=== PATIENT | female | born 1985 | race Caucasian/White ===

== ENCOUNTER 2020-10-28 18:38 | Emergency (ER) | payer OTHER, SELFPAY ==
[2020-10-28 18:38] VITALS: BP 117/76; PULSE 84; RESP 16; TEMP 36.6; O2SAT 100
[2020-10-28] MEDS: MORPHINE SULFATE (*CRX) 4 MG/ML INJ IM (19:00)
[2020-10-28] MEDS: TETRACAINE HCL 0.5% OPHTH SOLN 4 ML BTL 1 DROP RIGHT EYE (19:28)
[2020-10-28] MEDS: ERYTHROMYCIN OPHTH OINTMENT 3.5 GM TUBE 1 APPLIC RIGHT EYE (19:30)
[2020-10-28] MEDS: FLUORESCEIN SOD 1 MG/STRIP RIGHT EYE (19:31)
--- NOTE | 2020-10-28 19:48 | ED.EYEPROB ---
HPI - Eye Problem General Chief complaint: Eye Problems Stated complaint: right eye pain Time Seen by Provider: 10/28/20 18:40 Source: patient and RN notes reviewed Mode of arrival: ambulatory Limitations: no limitations History of Present Illness HPI Narrative: Pt washed the right eye out x 45 min after the eye was splashed with an acidic solution. chief complaint: eye pain and eye redness Onset (ago): hour(s) (3) Onset description: sudden Duration: constant Location: right eye Eye Symptoms: burning, redness and pain Place: work Mechanism: chemical exposure Severity: mild Severity scale (1-10): 6 If Pain, Quality: burning and aching Associated symptoms: none Treatments Prior to Arrival: irrigated eye Related Data Allergies Allergy/AdvReac Type Severity Reaction Status Date / Time acetaminophen Allergy Unknown Verified 11/11/18 19:26 hydrocodone Allergy Unknown Verified 05/14/12 09:01 HYDROCODONE BIT Allergy Unknown Uncoded 11/11/18 19:26 Contrast Media AdvReac Mild IVP DYE Uncoded 11/11/18 19:26 Review of Systems Review of Systems: All systems reviewed & are unremarkable except as noted in HPI and below Constitutional: Constitutional: Reports as per HPI and Reports no additional constitutional complaints Eyes: Eyes: Reports as per HPI and Reports no additional eye complaints ENT: Reports system reviewed and no additional complaints, except as documented and Reports as per HPI Cardiovascular: Cardiovascular: Reports as per HPI and Reports no additional cardiovascular complaints Respiratory: Respiratory: Reports as per HPI and Reports no additional respiratory complaints Gastrointestinal: Gastrointestinal: Reports as per HPI and Reports no additional gastrointestinal complaints Genitourinary: Genitourinary: Reports no additional female genitourinary complaints and Reports as per HPI Musculoskeletal: Musculoskeletal: Reports no additional musculoskeletal complaints and Reports as per HPI Integumentary/Breasts: Skin/Breast: Reports system reviewed and no additional complaints, except as docu and Reports as per HPI Neurologic: Reports system reviewed and no additional complaints, except as documented and Reports as per HPI Psychiatric: Psychiatric: Reports no additional psychiatric complaints and Reports as per HPI Endocrine: Endocrine: Reports no additional endocrine complaints and Reports as per HPI Hematologic/Lymphatic: Hematologic/Lymphatic: Reports no additional hematologic/lymphatic complaints and Reports as per HPI Allergic/Immunologic: Allergic/Immunologic: Reports no additional allergic/immunologic complaints and Reports as per HPI [facility] Social History Social History Smoking status: Never smoker Alcohol intake: never Exam Const: General: no acute distress and alert Nutritional Appearance: well nourished Orientation/consciousness: patient oriented x3 Limitations: no limitations HENMT: Head: normal to inspection Ears: external ears normal and TM's normal bilaterally General nose exam: Normal external nose present and Normal nares present Mouth: Yes lip normal and Yes moist mucous membranes Teeth and gingiva: dentition normal Throat: posterior oropharynx normal Eyes: Conjunctivae: conjunctivae normal Pupils: Equal, round and reactive pupils present EOM: EOMs intact bilaterally Other: minimally abraded medial and lateral sclera right. cornea was not abraded. vision was normal for finger counting. Neck: Neck: normal visual inspection and no lymphadenopathy Chest: Chest palpation & inspection: normal inspection of the chest Resp: Effort & Inspection: normal respiratory effort Auscultation: clear to auscultation bilaterally Cardio: Rate: regular rate Rhythm: regular rhythm GI: Auscultation: normal bowel sounds : General: Yes bladder normal to palpation and Yes no CVA tenderness External Female Exam: normal external appear
[2020-10-28 20:00] VITALS: PULSE 80; RESP 16; O2SAT 100
--- NOTE | 2020-10-28 20:16 | PC.NURSE ---
1856 casandra at poison control contacted, case initiated. casandra instructed RN irrigate eye, test eye pH, and check for corneal abrasion. erp notified. eye irrigated. first pH 9.0. Eye irrigated again. 2nd pH 8.5. Eye irrigated again. 3rd pH 7.5 (second nurse verification Mandy Chan RN)
== END 2020-10-28 20:03 | disposition home or self-care (01) ==
PROVIDERS: Emergency Provider Emergency Medicine
DX: H10.211 Acute toxic conjunctivitis, right eye (principal)
CPT/HCPCS: 96372; 99283; A9270; J2270

== ENCOUNTER 2021-10-27 10:49 | Emergency (ER) | payer OTHER, SELFPAY ==
[2021-10-27 10:59] VITALS: BP 131/91; PULSE 79; RESP 18; TEMP 36.4; O2SAT 100
--- NOTE | 2021-10-27 11:18 | ED.FEMALEGU ---
HPI - Female Genitourinary General Chief complaint: Urogenital-Female Stated complaint: blood in urine Time Seen by Provider: 10/27/21 11:18 Source: patient Mode of arrival: ambulatory Limitations: no limitations History of Present Illness HPI Narrative: 36 yo F presents with c/o fatigue, generalized weakness, shakiness and feeling lightheaded at times. Symptoms for past 2 to 3 days. reports hx of hypoglycemia. on special hypoglycemia diet from doctor . Does not have glucometer at home to check blood. She suspects symptoms are from low blood sugar. Has been eating and drinking plenty. states she had big meal before arrival. BS here today 89. She states this is good for her. She also reports when standing for long period of time she starts to feel SOB because she is so tired . cannot do her normal activities. she also states she saw blood in urine several days ago but not recently. no other urinary symptoms. does not have periods due to early menopause. Pt states her PCP office is closed this week. All systems reviewed and negative except as noted above. Related Data Home Medications Medication Instructions Recorded Confirmed No Home Medications 10/27/21 10/27/21 Allergies Allergy/AdvReac Type Severity Reaction Status Date / Time acetaminophen Allergy Unknown Unknown Verified 10/27/21 13:16 hydrocodone Allergy Unknown Swelling Verified 10/27/21 13:16 HYDROCODONE BIT Allergy Unknown Swelling Uncoded 10/27/21 13:16 Contrast Media AdvReac Mild IVP DYE Uncoded 10/27/21 13:16 Review of Systems Review of Systems: CONSTITUTIONAL: Denies fever, chills, or sweats. Reports fatigue. EYES: Denies visual changes, redness, or discharge. ENT: Denies rhinorrhea, congestion, sore throat, or otalgia. CARDIOVASCULAR: Denies chest pain, palpitations, or edema. RESPIRATORY: Denies cough or dyspnea. GASTROINTESTINAL: Denies abdominal pain, nausea, vomiting, or diarrhea. GENITOURINARY: Denies dysuria or hematuria. SKIN: Denies rash or itching. MUSCULOSKELETAL: Denies back pain, joint pain, or myalgia. NEUROLOGIC: Denies headache, numbness. Reports generalized weakness, feeling shaky and intermittently lightheaded. PSYCHIATRIC: Denies anxiety or depression. All other systems reviewed are negative, except as documented in HPI. [facility] Social History Social History Smoking status: Never smoker Alcohol intake: never Comments At time of signature, agree with nursing past medical, surgical, social and family history. There is no relevant family history pertinent to the presenting complaint. Exam Narrative: GENERAL: This is a well-nourished, well-developed patient, in no apparent distress. HEAD: normocephalic, atraumatic. EYES: PERRL. Sclera clear/white. Vision is grossly intact. EARS: External ears normal NOSE: External nose normal NECK: Neck supple, non-tender without lymphadenopathy, masses or thyromegaly. CARDIOVASCULAR: Regular rate and rhythm without murmurs, gallops, or rubs. RESPIRATORY: Clear to auscultation. Breath sounds equal bilaterally. No wheezes, rales, or rhonchi. GASTROINTESTINAL: Abdomen soft, non-tender, nondistended. Bowel sounds are active. No hepato-splenomegaly, or palpable masses. No guarding. SKIN: warm, Dry, intact with no suspicious lesions or rash, good texture and turgor. NEURO: awake, alert, and oriented to person, place and time. There were no obvious focal neurologic abnormalities. EXTREMITIES: No joint tenderness, effusion, or edema noted. Course Course Level of Care: Express Care Visit Vital Signs Vital signs: Vital Signs Temperature 36.4 C L 10/27/21 10:59 Pulse Rate 79 10/27/21 10:59 Respiratory Rate 18 10/27/21 10:59 Blood Pressure 131/91 H 10/27/21 10:59 Pulse Oximetry 100 10/27/21 10:59 Oxygen Delivery Room Air 10/27/21 10:59 Temperature 36.4 C L 10/27/21 10:59 Pulse Rate 79 10/27/21 10:59 Respiratory Rate
[2021-10-27 11:29] LABS: Glucose Point of Care 89 mg/dl (65-105)
== END 2021-10-27 12:11 | disposition home or self-care (01) ==
PROVIDERS: Emergency Provider Nurse Practitioner Family
DX: Z71.1 Person with feared health complaint in whom no diagnosis is made (principal)
CPT/HCPCS: 81003; 82948; 87426; 99213; C9803; G0463

== ENCOUNTER 2021-10-27 13:02 | Emergency (ER) | payer OTHER, SELFPAY ==
--- NOTE | ~2021-10-27 | CT_ITS ---
EXAMINATION: CT diagnostic chest wo con DATE: 10/27/2021 14:11 INDICATION: Right scapular pain, shortness of breath TECHNIQUE: Computed tomography (CT) of the chest was performed without intravenous contrast. The dose -length product (DLP) was 135.96 mGy-cm. Automated exposure control and iterative reconstruction tech [employer] were employed. COMPARISON: None FINDINGS: There is mild scarring of the lung apices. There is a 3 mm nodule in the right lung apex. T he lungs are free of acute opacities. No pleural effusion or pneumothorax. No pathologically enlarged thoracic lymph nodes are identified. The heart size is normal. The visualized osseous structures are unremarkable. IMPRESSION: 1. No CT correlate for the patient's symptoms. 2. 3 mm nodule of the right lung apex, likely old granulomatous disease. If the patient has no risk f actors for malignancy, no further follow up is required. If there are risk factors for malignancy (i .e., history of smoking, asbestos or radiation exposure), consider followup CT in 12 months. Reviewed, dictated and finalized at location L. IMPRESSION: 1. No CT correlate for the patient's symptoms. 2. 3 mm nodule of the right lung apex, likely old granulomatous disease. If the patient has no risk factors for malignancy, no further follow up is required. If there are risk factors for malignancy (i.e., history of smoking, asbestos o r radiation exposure), consider followup CT in 12 months.
--- NOTE | ~2021-10-27 | CT_ITS ---
EXAMINATION: CT cervical spine wo con DATE: 10/27/2021 14:11 INDICATION: Posterior neck pain TECHNIQUE: Computed tomography (CT) of the cervical spine was performed without intravenous contrast. The dose-length product (DLP) was 131.74 mGy-cm. Automated exposure control and iterative reconstruc tion technique were employed. COMPARISON: None FINDINGS: There is no fracture, dislocation, or subluxation. The vertebral body heights, alignment, a nd intervertebral disc spaces are normal. The paravertebral soft tissues are unremarkable. The odonto id is intact. IMPRESSION: 1. Unremarkable cervical spine. Reviewed, dictated and finalized at location L.
--- NOTE | ~2021-10-27 | CT_ITS ---
EXAMINATION: CT brain wo con INDICATION: Dizziness COMPARISON: 01/16/2014 TECHNIQUE: Standard unenhanced head CT. The dose-length product (DLP) was 529.67 mGy-cm. The mA was a djusted according to patient size. Iterative reconstruction technique was employed. FINDINGS: There is no intracranial hemorrhage, acute infarction, or abnormal mass lesion. The ventric les are normal. There is no abnormal mass effect or midline shift. The abarca-white matter differentiat ion is normal. The basal cisterns are patent. The orbits are normal. The paranasal sinuses, mastoids and calvarium are normal. IMPRESSION: 1. No acute intracranial abnormality. Reviewed, dictated and finalized at location L.
[2021-10-27 13:12] VITALS: BP 124/77; PULSE 77; RESP 16; TEMP 36.4; O2SAT 100
--- NOTE | 2021-10-27 13:25 | ECG_ITS ---
Measurements Intervals [place] Rate: 75 P: 68 PA: 144 QRS: 94 QRSD: 114 T: 62 QT: 421 QTc: 473 Interpretive Statements SINUS RHYTHM RIGHT AXIS DEVIATION INCOMPLETE RIGHT BUNDLE BRANCH BLOCK DELAYED PRECORDIAL R/S TRANSITION BORDERLINE ECG Electronically Signed On 10-27-2021 13:57:22 CDT by Joce Varma D.O.
[2021-10-27 13:28] LABS: Glucose Point of Care 93 mg/dl (65-105)
[2021-10-27 13:53] LABS: Add Urine Microscopic? NO; Appearance Urine Clear (Clear); Basophils Absolute Auto 0.05 K/mm3 (0.00-0.10); Basophils Percent Auto 0.8 % (0.0-1.0); Bilirubin Urine Negative (Negative); Blood Urine Negative (Negative); Color Urine Light Yellow (Yellow); Eosinophils Percent Auto 3.1 % (1.0-6.0); Glucose Urine UA Negative (Negative); Hematocrit 43.3 % (35.0-49.0); Hemoglobin 14.5 g/dL (12.0-15.0); Immature Granulocyte Absolute 0.02 K/mm3 (0.00-0.00); Immature Granulocyte Percent A 0.3 % (0.0-0.0); Ketones Urine Negative (Negative); Leukocyte Esterase Ur Negative (Negative); Lymphocytes Absolute Auto 1.84 K/mm3 (1.10-4.50); Lymphocytes Percent Auto 28.1 % (18.0-42.0); Mean Corpuscular HGB Conc 33.5 g/dL (32.0-36.0); Mean Corpuscular Hemoglobin 29.4 pg (27.0-31.0); Mean Corpuscular Volume 87.8 fL (78.0-102.0); Mean Platelet Volume 10.1 fl (9.2-11.8); Monocytes Absolute Auto 0.49 K/mm3 (0.10-0.90); Monocytes Percent Auto 7.5 % (2.0-11.0); Neutrophils Percent Auto 60.2 % (50.0-70.0); Nitrate Urine Negative (Negative); Platelet Count Result 178 K/mm3 (150-420); Protein Urine Negative (Negative); Red Blood Count 4.93 M/mm3 (4.20-5.40); Red Cell Distribution Width 12.2 % (11.6-14.4); Specific Grav Ur <= 1.005 (1.010-1.020); Urobilinogen Urine 0.2 mg/dL (0.2-1.0); White Blood Count 6.6 K/mm3 (4.8-10.8); pH Urine 6.5 (5.0-8.0)
[2021-10-27 14:14] LABS: Lactic Acid Reflex 0.5 mmol/L (0.4-2.0)
[2021-10-27 14:19] LABS: Alanine Aminotransferase 24 U/L (14-59); Albumin Level 4.1 g/dL (3.4-5.0); Alkaline Phosphatase 87 U/L (46-116); Anion Gap 10 mmol/L (8-16); Aspartate Amino Transferase 16 U/L (15-37); Bilirubin,Total 0.3 mg/dL (0.00-1.00); Blood Urea Nitrogen 16 mg/dL (7-18); Calcium 9.3 mg/dL (8.5-10.1); Carbon Dioxide 28 mmol/L (21-32); Chloride 105 mmol/L (98-108); Estimated Glomerular Filt Rate > 60; Glucose 96 mg/dL (70-99); Osmolality Calculated 297 mOsm/kg (285-295); Potassium 3.7 mmol/L (3.5-5.1); SPREG INTERNAL CONTROL Positive; Serum Qual hCG Negative; Sodium 143 mmol/L (136-145); Total Protein 7.5 g/dL (6.4-8.2); Troponin I 5.9 ng/L (0.00-60.4)
[2021-10-27 14:20] LABS: Thyroid Stimulating Hormone 1.17 uIU/mL (0.36-3.74)
--- NOTE | 2021-10-27 14:49 | ED.DIZZY ---
HPI - Dizziness General Chief Complaint: Dizziness Stated Complaint: Blood in urine/Fatigue/Dizzines Time Seen by Provider: 10/27/21 13:06 Source: patient and RN notes reviewed Mode of arrival: ambulatory Limitations: no limitations History of Present Illness MD elicited complaint: dizziness and lightheadedness Onset (ago): day(s) Timing: gradual onset Severity: moderate Description: lightheadedness History of similar symptoms: Yes Exacerbating factors: nothing Relieving factors: nothing Associated symptoms: nausea and weakness Associated neuro symptoms: limb weakness Related Data Home Medications Medication Instructions Recorded Confirmed No Home Medications 10/27/21 10/27/21 Allergies Allergy/AdvReac Type Severity Reaction Status Date / Time acetaminophen Allergy Unknown Unknown Verified 10/27/21 13:16 hydrocodone Allergy Unknown Swelling Verified 10/27/21 13:16 HYDROCODONE BIT Allergy Unknown Swelling Uncoded 10/27/21 13:16 Contrast Media AdvReac Mild IVP DYE Uncoded 10/27/21 13:16 Review of Systems Review of Systems: All systems reviewed & are unremarkable except as noted in HPI and below Constitutional: Constitutional: Reports no additional constitutional complaints Eyes: Eyes: Reports no additional eye complaints ENT: Reports system reviewed and no additional complaints, except as documented Cardiovascular: Cardiovascular: Reports no additional cardiovascular complaints Respiratory: Respiratory: Reports no additional respiratory complaints Gastrointestinal: Gastrointestinal: Reports no additional gastrointestinal complaints Genitourinary: Genitourinary: Reports no additional female genitourinary complaints Musculoskeletal: Musculoskeletal: Reports no additional musculoskeletal complaints Integumentary/Breasts: Skin/Breast: Reports system reviewed and no additional complaints, except as docu Neurologic: Reports system reviewed and no additional complaints, except as documented, Reports dizziness and Reports weakness Psychiatric: Psychiatric: Reports no additional psychiatric complaints Endocrine: Endocrine: Reports no additional endocrine complaints Hematologic/Lymphatic: Hematologic/Lymphatic: Reports no additional hematologic/lymphatic complaints Allergic/Immunologic: Allergic/Immunologic: Reports no additional allergic/immunologic complaints PMFSH Past Medical History Medical History Dizziness Generalized weakness Social History Social History Smoking status: Never smoker Alcohol intake: never Exam Const: General: healthy appearing and no acute distress Nutritional Appearance: well nourished Orientation/consciousness: patient oriented x3 Limitations: no limitations HENMT: Head: normal to inspection Ears: external ears normal, TM's normal bilaterally and EAC's normal General nose exam: Normal external nose present and Normal nares present Face and sinus: normal facial exam and sinuses nontender Mouth: Yes Normal oral and palatal mucosa present and Yes moist mucous membranes Teeth and gingiva: dentition normal Throat: posterior oropharynx normal Eyes: Conjunctivae: conjunctivae normal Pupils: Equal, round and reactive pupils present EOM: EOMs intact bilaterally Neck: Neck: normal visual inspection, no lymphadenopathy and no meningeal signs Chest: Chest palpation & inspection: normal inspection of the chest Resp: Effort & Inspection: normal respiratory effort Auscultation: clear to auscultation bilaterally Cardio: Rate: regular rate Rhythm: regular rhythm GI: GI Palp: Yes Soft to palpation and No Tenderness to palpation present (GI) Auscultation: normal bowel sounds : General: Yes bladder normal to palpation and Yes no CVA tenderness Bimanual exam- vagina & uterus: bladder normal to palpation Back/Spine/Pelvis: Back: no CVA tenderness Skin: Genera
[2021-10-27] MEDS: SODIUM CHLORIDE 0.9% IV 1,000 ML 999 ML IV CONT (15:01)
[2021-10-27 16:03] VITALS: BP 114/73; PULSE 78; RESP 16; TEMP 36.8; O2SAT 100
== END 2021-10-27 16:24 | disposition home or self-care (01) ==
PROVIDERS: Emergency Provider Emergency Medicine
DX: M62.81 Muscle weakness (generalized) (principal)
CPT/HCPCS: 36415; 70450; 71250; 72125; 80053; 81003; 82948; 83605; 84443; 84484; 84703; 85025; 93005; 96360; 99284; J7030

== ENCOUNTER 2022-01-07 17:57 | Emergency (ER) | payer OTHER, SELFPAY ==
[2022-01-07 17:57] VITALS: BP 114/74; PULSE 66; RESP 20; TEMP 36.6; O2SAT 97
[2022-01-07] MEDS: SODIUM CHLORIDE 0.9% IV 1,000 ML 999 ML IV CONT ×2 (18:23→19:33)
[2022-01-07] MEDS: ONDANSETRON INJ 4 MG/2 ML VIAL IV PUSH ×2 (18:23→20:44)
[2022-01-07 18:48] LABS: Glucose Point of Care 83 mg/dl (65-105)
--- NOTE | 2022-01-07 19:11 | PC.NURSE ---
Report to TAYLOR Uribe. no questions or concerns at this time.
--- NOTE | 2022-01-07 19:34 | PC.NURSE ---
RN started to educated pt on medications that is ordered for pt. Pt states that she believes she is just dehydrated and does not want any more medications besides the NSS. Pt also states that she does not want the abdominal CT. ERP and technician notified.
[2022-01-07 19:51] LABS: Basophils Absolute Auto 0.02 K/mm3 (0.00-0.10); Basophils Percent Auto 0.3 % (0.0-1.0); Eosinophils Absolute Auto 0.03 K/mm3 (0.02-0.50); Eosinophils Percent Auto 0.5 % (1.0-6.0); Hematocrit 35.9 % (35.0-49.0); Hemoglobin 11.5 g/dL (12.0-15.0); Immature Granulocyte Absolute 0.02 K/mm3 (0.00-0.00); Immature Granulocyte Percent A 0.3 % (0.0-0.0); Lymphocytes Percent Auto 15.1 % (18.0-42.0); Mean Corpuscular Hemoglobin 28.8 pg (27.0-31.0); Mean Platelet Volume 10.4 fl (9.2-11.8); Monocytes Absolute Auto 0.42 K/mm3 (0.10-0.90); Monocytes Percent Auto 6.3 % (2.0-11.0); Neutrophils Absolute Auto 5.2 K/mm3 (1.7-7.2); Neutrophils Percent Auto 77.5 % (50.0-70.0); Platelet Count Result 128 K/mm3 (150-420); Red Blood Count 3.99 M/mm3 (4.20-5.40); Red Cell Distribution Width 12.3 % (11.6-14.4); White Blood Count 6.6 K/mm3 (4.8-10.8)
[2022-01-07 19:58] LABS: Appearance Urine Clear (Clear); Bilirubin Urine Negative (Negative); Blood Urine Negative (Negative); Glucose Urine UA Negative (Negative); Ketones Urine 3+ (Negative); Leukocyte Esterase Ur Negative (Negative); Nitrate Urine Negative (Negative); Protein Urine Negative (Negative); Specific Grav Ur >= 1.030 (1.010-1.020); Urobilinogen Urine 0.2 mg/dL (0.2-1.0)
[2022-01-07 20:04] LABS: Add Urine Microscopic? YES; Color Urine Light Yellow (Yellow); SPREG INTERNAL CONTROL Positive; Serum Qual hCG Negative; Squamous Epithelial Cell Urine Occasional /hpf (Few)
[2022-01-07 20:12] LABS: Alanine Aminotransferase 25 U/L (14-59); Albumin Level 3.3 g/dL (3.4-5.0); Alkaline Phosphatase 63 U/L (46-116); Anion Gap 9 mmol/L (8-16); Aspartate Amino Transferase 15 U/L (15-37); Bilirubin,Total 0.5 mg/dL (0.00-1.00); Blood Urea Nitrogen 9 mg/dL (7-18); Calcium 7.6 mg/dL (8.5-10.1); Carbon Dioxide 22 mmol/L (21-32); Chloride 113 mmol/L (98-108); Estimated CRCL calculation 131 ml/min; Estimated Glomerular Filt Rate > 60; Glucose 95 mg/dL (70-99); Lactic Acid Reflex 0.8 mmol/L (0.4-2.0); Lipase 128 U/L (73-393); Osmolality Calculated 296 mOsm/kg (285-295); Potassium 3.3 mmol/L (3.5-5.1); Sodium 144 mmol/L (136-145); Thyroid Stimulating Hormone 0.68 uIU/mL (0.36-3.74); Total Protein 5.8 g/dL (6.4-8.2)
--- NOTE | 2022-01-07 20:31 | PC.NURSE ---
Pt states she feels nauseous again and is asking for zofran. ERP informed. ERP orders IV 4mg Zofran.
--- NOTE | 2022-01-07 20:42 | ED.NAVMDI ---
HPI - Nausea/Vomiting/Diarrhea General Chief complaint: Nausea/Vomiting/Diarrhea Stated complaint: dehydration,vomiting, diarrhea Time Seen by Provider: 01/07/22 17:59 Source: patient and RN notes reviewed Mode of arrival: ambulatory Limitations: no limitations History of Present Illness MD elicited complaint: nausea, vomiting, diarrhea and abdominal pain Onset (ago): hour(s) (16) Description of vomiting: food contents and watery Description of diarrhea: semi-solid Associated nausea: Yes Associated abdominal pain: Yes Location of pain: epigastric Radiation: periumbilical Pain consistency: constant Severity: mild Pain scale (0-10): 3 Quality: cramping and aching Exacerbating factors: none Relieving factors: none Associated symptoms: loss of appetite, malaise and nausea/vomiting Related Data Allergies Allergy/AdvReac Type Severity Reaction Status Date / Time hydrocodone Allergy Unknown Swelling Verified 10/27/21 13:16 HYDROCODONE BIT Allergy Unknown Swelling Uncoded 10/27/21 13:16 Contrast Media AdvReac Mild IVP DYE Uncoded 10/27/21 13:16 Review of Systems Review of Systems: All systems reviewed & are unremarkable except as noted in HPI and below Constitutional: Constitutional: Reports no additional constitutional complaints Eyes: Eyes: Reports no additional eye complaints ENT: Reports system reviewed and no additional complaints, except as documented Cardiovascular: Cardiovascular: Reports no additional cardiovascular complaints Respiratory: Respiratory: Reports no additional respiratory complaints Gastrointestinal: Gastrointestinal: Reports abdominal pain, Reports diarrhea, Reports nausea and Reports vomiting Genitourinary: Genitourinary: Reports no additional female genitourinary complaints Musculoskeletal: Musculoskeletal: Reports no additional musculoskeletal complaints Integumentary/Breasts: Skin/Breast: Reports system reviewed and no additional complaints, except as docu Neurologic: Reports system reviewed and no additional complaints, except as documented Psychiatric: Psychiatric: Reports no additional psychiatric complaints Endocrine: Endocrine: Reports no additional endocrine complaints Hematologic/Lymphatic: Hematologic/Lymphatic: Reports no additional hematologic/lymphatic complaints Allergic/Immunologic: Allergic/Immunologic: Reports no additional allergic/immunologic complaints [facility] Past Medical History Medical History (Updated 01/07/22 @ 20:55 by Augie Calero MD) Dizziness Generalized weakness Vomiting and diarrhea Social History Social History Smoking status: Never smoker Alcohol intake: never Exam Const: General: no acute distress and well nourished Nutritional Appearance: well nourished Orientation/consciousness: patient oriented x3 Limitations: no limitations HENMT: Head: normal to inspection Ears: external ears normal, TM's normal bilaterally and EAC's normal Face/Nose/Sinus: Normal external nose present, Normal nares present, normal facial exam and sinuses nontender Face and sinus: normal facial exam and sinuses nontender Mouth: Yes Normal oral and palatal mucosa present and Yes moist mucous membranes Teeth and gingiva: dentition normal Throat: posterior oropharynx normal Eyes: Conjunctivae: conjunctivae normal Pupils: Equal, round and reactive pupils present EOM: EOMs intact bilaterally Neck: Neck: normal visual inspection, no lymphadenopathy and no meningeal signs Chest: Chest palpation & inspection: normal inspection of the chest Resp: Effort & Inspection: normal respiratory effort Auscultation: clear to auscultation bilaterally Cardio: Rate: regular rate Rhythm: regular rhythm GI: GI Palp: Yes Soft to palpation and Yes Tenderness to palpation present (GI) (minimal epigastric tenderness.) Auscultation: normal bowel sounds : General: Yes bladder normal to palpation and Yes no CVA tenderness
[2022-01-07] MEDS: POTASSIUM CHLORIDE 20 MEQ TABLET 40 MEQ PO (20:48)
[2022-01-07 20:57] VITALS: BP 100/63; PULSE 64; RESP 16; TEMP 37.1; O2SAT 97
== END 2022-01-07 21:04 | disposition home or self-care (01) ==
PROVIDERS: Emergency Provider Emergency Medicine; PCP Nurse Practitioner
DX: K52.9 Noninfective gastroenteritis and colitis, unspecified (principal); E86.0 Dehydration
CPT/HCPCS: 36415; 80053; 81001; 82948; 83605; 83690; 84443; 84703; 85025; 96361; 96374; 96376; 99284; A9270; J2405; J7030

== ENCOUNTER 2022-01-20 15:36 | Emergency (ER) | payer OTHER, SELFPAY ==
[2022-01-20 15:45] VITALS: BP 112/73; PULSE 74; RESP 18; TEMP 36.1; O2SAT 100
--- NOTE | 2022-01-20 15:59 | ED.GENADULT ---
HPI - General Adult General Chief complaint: Nausea/Vomiting/Diarrhea Stated complaint: dehydration Time Seen by Provider: 01/20/22 15:50 History of Present Illness HPI narrative: The patient is a 36-year-old woman who was seen here 01/07/2022 for nausea vomiting and diarrhea. She was treated and sent home on Zofran and potassium supplementation since the potassium level was low. She has also seen her primary care provider since that time and has received 3 boluses of intravenous hydration with vitamins, most recently 9 days ago. Things had improved until yesterday evening when the patient had loose to watery diarrheal stools, 6 episodes last night, another 7 episodes today. She feels weak and tired and dehydrated along with dizziness and nausea but no vomiting. She has been taking oral hydration but feels that she is still dehydrated. She denies any fevers or chills. Mild abdominal discomfort. No urinary symptoms. Other complaints. Related Data Allergies Allergy/AdvReac Type Severity Reaction Status Date / Time hydrocodone Allergy Unknown Swelling Verified 10/27/21 13:16 HYDROCODONE BIT Allergy Unknown Swelling Uncoded 10/27/21 13:16 Contrast Media AdvReac Mild IVP DYE Uncoded 10/27/21 13:16 Review of Systems Review of Systems: All systems reviewed & are unremarkable except as noted in HPI and below Constitutional: Constitutional: Reports no additional constitutional complaints, Denies anorexia, Denies body ache(s), Denies chills, Denies excessive sweating, Reports fatigue, Denies fever(s), Denies frequent falls, Denies headache(s) and Reports malaise Eyes: Eyes: Reports no additional eye complaints, Denies blurry vision, Denies change in vision, Denies irritation, Denies itchy eyes and Denies photophobia ENT: Reports system reviewed and no additional complaints, except as documented, Reports Normal hearing present, Denies change in voice, Denies dysphagia, Denies vertigo, Reports dizziness, Denies ear discharge, Denies headache(s), Denies hearing loss, Denies hoarseness, Denies nasal congestion, Denies neck pain, Denies sinus pressure, Denies sore throat and Denies throat swelling Cardiovascular: Cardiovascular: Reports no additional cardiovascular complaints, Denies chest pain, Denies syncope, Denies rapid heart rate, Denies irregular heart rhythm, Denies leg edema, Denies dyspnea and Denies slow heart rate Respiratory: Respiratory: Reports no additional respiratory complaints, Denies cough, Denies dyspnea, Denies stridor and Denies wheezing Gastrointestinal: Gastrointestinal: Reports no additional gastrointestinal complaints, Reports abdominal pain ( Mild, diffuse), Denies melena, Denies hematochezia, Denies dysphagia, Reports diarrhea, Reports nausea and Denies vomiting Genitourinary: Genitourinary: Denies hematuria, Denies urinary frequency, Denies dysuria, Denies flank pain and Denies urinary urgency Musculoskeletal: Musculoskeletal: Reports no additional musculoskeletal complaints, Denies abnormal gait, Denies back pain, Denies myalgias, Denies arthralgias, Denies joint swelling, Denies limited range of motion, Denies muscle cramps, Denies muscle weakness, Denies neck pain and Denies numbness Integumentary/Breasts: Skin/Breast: Reports system reviewed and no additional complaints, except as docu, Denies breast pain, Denies change in pigmentation, Denies pruritus, Denies erythema and Denies wounds Neurologic: Reports system reviewed and no additional complaints, except as documented, Reports Normal hearing present, Denies Abnormal speech present, Denies abnormal gait, Denies confusion, Denies vertigo, Denies dizziness, Denies syncope, Denies frequent falls, Denies headache(s), Denies focal weakness, Denies numbness and Denies paresthesias Psychiatric: Psychiatric: Reports no additional psychiatric complaints and Denies confusion Endocrine: Endocrine: Reports no additional endocrine complaints, Denies cold intolerance, Denies exce
[2022-01-20 16:24] VITALS: BP 107/78; PULSE 73
[2022-01-20 16:25] VITALS: BP 109/89; PULSE 92
[2022-01-20 16:26] VITALS: BP 117/82; PULSE 94
[2022-01-20 16:43] LABS: Appearance Urine Clear (Clear); Bilirubin Urine Negative (Negative); Blood Urine Negative (Negative); Glucose Urine UA Negative (Negative); Ketones Urine Negative (Negative); Leukocyte Esterase Ur Negative LEU/UL (Negative); Nitrate Urine Negative (Negative); Protein Urine Negative (Negative); Specific Grav Ur <= 1.005 (1.010-1.020); Urobilinogen Urine 0.2 mg/dL (0.2-1.0); pH Urine 6.5 (5.0-8.0)
[2022-01-20 16:50] LABS: Add Urine Microscopic? NO; Color Urine Light Yellow (Yellow); Pregnancy On Board Control Positive; Urine Pregnancy Test Negative
[2022-01-20 16:56] LABS: Alanine Aminotransferase 23 U/L (14-59); Albumin Level 4.3 g/dL (3.4-5.0); Alkaline Phosphatase 91 U/L (46-116); Anion Gap 10 mmol/L (8-16); Aspartate Amino Transferase 21 U/L (15-37); Bilirubin,Total 0.5 mg/dL (0.00-1.00); Blood Urea Nitrogen 13 mg/dL (7-18); Calcium 9.4 mg/dL (8.5-10.1); Carbon Dioxide 27 mmol/L (21-32); Chloride 104 mmol/L (98-108); Estimated CRCL calculation 87 ml/min; Estimated Glomerular Filt Rate > 60; Glucose 103 mg/dL (70-99); Lipase 244 U/L (73-393); Osmolality Calculated 292 mOsm/kg (285-295); Potassium 3.6 mmol/L (3.5-5.1); Sodium 141 mmol/L (136-145); Total Protein 8.2 g/dL (6.4-8.2)
[2022-01-20] MEDS: SODIUM CHLORIDE 0.9% IV 2,000 ML 999 ML IV CONT (16:59)
[2022-01-20 17:15] LABS: Magnesium 2.1 mg/dL (1.8-2.4)
[2022-01-20 17:16] LABS: Amylase 73 U/L (25-115); Basophils Absolute Auto 0.06 K/mm3 (0.00-0.10); Basophils Percent Auto 0.7 % (0.0-1.0); Eosinophils Absolute Auto 0.28 K/mm3 (0.02-0.50); Eosinophils Percent Auto 3.3 % (1.0-6.0); Hematocrit 42.5 % (35.0-49.0); Hemoglobin 14.2 g/dL (12.0-15.0); Immature Granulocyte Absolute 0.03 K/mm3 (0.00-0.00); Immature Granulocyte Percent A 0.4 % (0.0-0.0); Lymphocytes Absolute Auto 2.88 K/mm3 (1.10-4.50); Lymphocytes Percent Auto 34.4 % (18.0-42.0); Mean Corpuscular HGB Conc 33.4 g/dL (32.0-36.0); Mean Corpuscular Hemoglobin 29.1 pg (27.0-31.0); Mean Corpuscular Volume 87.1 fL (78.0-102.0); Monocytes Absolute Auto 0.82 K/mm3 (0.10-0.90); Monocytes Percent Auto 9.8 % (2.0-11.0); Neutrophils Absolute Auto 4.3 K/mm3 (1.7-7.2); Neutrophils Percent Auto 51.4 % (50.0-70.0); Platelet Count Result 201 K/mm3 (150-420); Red Blood Count 4.88 M/mm3 (4.20-5.40); Red Cell Distribution Width 11.8 % (11.6-14.4); White Blood Count 8.4 K/mm3 (4.8-10.8)
--- NOTE | 2022-01-20 17:17 | PC.NURSE ---
pt resting per cot. pt refused zofran, states iv fluids with help nausea.
--- NOTE | 2022-01-20 17:57 | PC.NURSE ---
pt resting per cot, at bedside. iv fluids infusing without difficulty. nausea better per pt.
[2022-01-20] MEDS: POTASSIUM BICARBONATE 25 MEQ TABEF 50 MEQ PO (18:17)
[2022-01-20 18:24] VITALS: BP 114/77; PULSE 65; RESP 18; TEMP 36.9; O2SAT 97
== END 2022-01-20 18:33 | disposition home or self-care (01) ==
PROVIDERS: Emergency Provider Emergency Medicine; PCP Dentist
DX: R19.7 Diarrhea, unspecified (principal); R53.1 Weakness; R42 Dizziness and giddiness
CPT/HCPCS: 36415; 80053; 81003; 81025; 82150; 83690; 83735; 85025; 96360; 99283; A9270; J7030

== ENCOUNTER 2022-03-07 16:36 | Emergency (ER) | payer OTHER, SELFPAY ==
--- NOTE | 2022-03-07 17:19 | PC.NURSE ---
Patient's up to triage to notify this RN that the patient is feeling much better and will be leaving without seeing a provider. Patient encouraged to return to the ED with any worsening sx. Patient ambulatory when leaving ER with steady gait. Respiration appears regular and nonlabored.
== END 2022-03-07 17:19 | disposition left against medical advice (07) ==
PROVIDERS: Emergency Provider Nurse Practitioner; PCP Nurse Practitioner
DX: Z53.21 Procedure and treatment not carried out due to patient leaving prior to being seen by health care provider (principal)
CPT/HCPCS: 99199

== ENCOUNTER 2023-01-26 20:16 | Emergency (ER) | payer OTHER, SELFPAY ==
[2023-01-26 20:20] VITALS: BP 112/77; PULSE 76; RESP 20; TEMP 36.4; O2SAT 100
--- NOTE | 2023-01-26 21:39 | PC.NURSE ---
2121 - Pt called for room, no answer 2138 - Pt called for room, no answer
== END 2023-01-26 21:43 | disposition left against medical advice (07) ==
LOC: ANHED 21:42
PROVIDERS: PCP Nurse Practitioner
DX: R06.02 Shortness of breath (principal)
CPT/HCPCS: 99199

== ENCOUNTER 2023-04-28 11:32 | Emergency (ER) | payer OTHER, SELFPAY ==
[2023-04-28] VITALS (14 sets, daily range): BP systolic 101–112; BP diastolic 57–89; PULSE 64–72; RESP 16–20; TEMP 36.4; O2SAT 100
--- NOTE | ~2023-04-28 | CT_ITS ---
EXAMINATION: CT abdomen pelvis wo con DATE: 04/28/2023 13:14 INDICATION: Right lower quadrant pain TECHNIQUE: Computed tomography (CT) of the abdomen and pelvis was performed without intravenous contr ast. The dose-length product was 239.88 mGy-cm. Automated exposure control and iterative reconstructi on technique were employed. COMPARISON: CT dated 11/11/2018. FINDINGS: Lung bases are unremarkable. Heart size normal. There is mild right hydronephrosis. No obst ructing stone or mass is seen. Normal appendix. Nonobstructive bowel pattern. The liver, spleen, panc reas, adrenal glands and left kidney are unremarkable. No significant vascular abnormality. Bladder i s severely distended. No acute osseous abnormality. IMPRESSION: 1. Mild right hydronephrosis. No obstructing stone or mass is seen. Reviewed, dictated and finalized at location A. T SPA DESK
--- NOTE | ~2023-04-28 | US_ITS ---
EXAMINATION: US pelvic complete w TV DATE: 04/28/2023 18:16 INDICATION: eval for torsion, patient reportedly postmenopausal on hormone replacement. TECHNIQUE: Multiple transabdominal and endovaginal sonographic images of the pelvis were obtained. COMPARISON: 04/28/2023. FINDINGS: Uterus: Retroverted uterus measuring 6.4 x 4.6 x 5.8 cm. Endometrial complex measures 10 mm, with foc i of endometrial fluid. Right Ovary: 3.2 x 1.1 x 1.9 cm. Vascular flow is present. No adnexal mass. Left Ovary: 3.1 x 2.4 x 3.1 cm. Vascular flow is present. 2.1 cm cyst with a fluid fluid level versus artifact, likely representing a simple cyst with artifact or a hemorrhagic cyst with dependent clot. There is no free fluid in the pelvis. IMPRESSION: 10 mm endometrial thickness with endometrial fluid, recommend gynecology referral and consideration f or the medial sampling. 2.1 cm presumed hemorrhagic cyst in the left ovary, recommend pelvic ultrasound follow-up in 6-12 wee ri. Reviewed, dictated and finalized at location K. [employer] IMPRESSION: 10 mm endometrial thickness with endometrial fluid, recommend gynecology referr al and consideration for the medial sampling. 2.1 cm presumed hemorrhagic cyst in the left ovary, recommend pelvic ultrasound follow-up in 6-12 weeks.
[2023-04-28 12:01] LABS: Basophils Absolute Auto 0.1 K/mm3 (0.0-0.1); Eosinophils Absolute Auto 0.1 K/mm3 (0-0.3); Eosinophils Percent Auto 2.1 % (0-4.4); Hematocrit 41.4 % (37.0-47.0); Hemoglobin 13.8 g/dL (12.0-15.0); Immature Granulocyte Absolute 0.06 K/mm3 (0.00-0.031); Lymphocytes Absolute Auto 2.01 K/mm3 (0.9-3.2); Mean Corpuscular HGB Conc 33.3 g/dl (32-36); Mean Corpuscular Hemoglobin 28.9 pg (26-34); Mean Corpuscular Volume 86.8 fl (80-100); Mean Platelet Volume 9.7 fl (7.4-10.4); Monocytes Absolute Auto 0.6 K/mm3 (0.1-0.6); Monocytes Percent Auto 9.1 % (2.6-8.5); Neutrophils Absolute Auto 3.5 K/mm3 (1.3-6.7); Neutrophils Percent Auto 54.8 % (45.5-73.1); Platelet Count Result 182 k/mm3 (150-375); Red Blood Count 4.77 M/mm3 (4.2-5.4); Red Cell Distribution Width 12.7 % (11.5-14.5); White Blood Count 6.3 K/mm3 (4.5-10.0)
[2023-04-28 12:07] LABS: Appearance Urine Clear (Clear); Bilirubin Urine Negative (Negative); Blood Urine Negative (Negative); Color Urine Yellow (Yellow); Glucose Urine UA Negative (Negative); Ketones Urine Negative (Negative); Leukocyte Esterase Ur Negative LEU/UL (Negative); Nitrate Urine Negative (Negative); Protein Urine Negative (Negative); Specific Grav Ur 1.004 (1.001-1.035); Urobilinogen Urine 0.2 mg/dL (<2.0)
[2023-04-28 12:11] LABS: Alanine Aminotransferase 19 U/L (6-35); Albumin Level 4.3 g/dL (3.5-5.1); Alkaline Phosphatase 72 U/L (38-126); Anion Gap 8 mmol/L (8-16); Aspartate Amino Transferase 22 U/L (14-36); Bilirubin,Total 0.6 mg/dL (0.2-1.3); Blood Urea Nitrogen 13 mg/dL (7-17); Calcium 9.3 mg/dL (8.4-10.2); Carbon Dioxide 24 mmol/L (22-30); Chloride 106 mmol/L (98-107); Estimated CRCL calculation 109 ml/min; Estimated Glomerular Filt Rate > 60; Glucose 98 mg/dL (65-110); Lipase 196 U/L (23-300); Sodium 138 mmol/L (137-145)
[2023-04-28 12:15] LABS: Add Urine Microscopic? NO
--- NOTE | 2023-04-28 17:03 | ED.ABDPAIN ---
HPI - Abdominal Pain General Chief Complaint: Abdominal Pain <Fredy Carrion MD - Last Filed: 04/29/23 15:59> Stated Complaint: abd pain <Fredy Carrion MD - Last Filed: 04/29/23 15:59> Time Seen by Provider: 04/28/23 16:44 <Fredy Carrion MD - Last Filed: 04/29/23 15:59> History of Present Illness HPI narrative: 37-year-old female presenting to the emergency department for evaluation of right lower quadrant pain. Patient states pain has been ongoing for the last week but has been worsening. Patient denies any prior history of ovarian cyst denies any prior history of kidney stones. Patient denies any prior history of abdominal surgeries. <Fredy Carrion MD - Last Filed: 04/29/23 15:59> Related Data Allergies/Adverse Reactions: Allergies Allergy/AdvReac Type Severity Reaction Status Date / Time hydrocodone Allergy Unknown Swelling Verified 04/28/23 11:34 HYDROCODONE BIT Allergy Unknown Swelling Uncoded 01/26/23 20:27 Contrast Media AdvReac Mild IVP DYE Uncoded 01/26/23 20:27 <Fredy Carrion MD - Last Filed: 04/29/23 15:59> Review of Systems Review of Systems: All systems reviewed & are unremarkable except as noted in HPI and below <Fredy Carrion MD - Last Filed: 04/29/23 15:59> PMFSH Past Medical History Medical History: Medical History (Updated 04/29/23 @ 00:00 by [facility]) Dizziness Generalized weakness Vomiting and diarrhea <Fredy Carrion MD - Last Filed: 04/29/23 15:59> Social History Social History: Social History Smoking status: Never smoker Alcohol intake: never <Fredy Carrion MD - Last Filed: 04/29/23 15:59> Exam Narrative: APPEARANCE: Well appearing, no pain, no distress, well-nourished. HEAD: normocephalic, atraumatic. EYES: PERRLA/EOMI, conjunctivae clear. NOSE: Normal no drainage EARS:TMS clear with good light reflex. THROAT: Pharynx clear, no exudate. NECK: Supple. No adenopathy, no masses. RESPIRATORY: Airway patent, respirations nonlabored. Clear to auscultation bilaterally, no rales, rhonchi, wheezing. CARDIOVASCULAR: Regular rate and rhythm without murmurs rubs or gallops. ABDOMINAL: Right lower quadrant tenderness to palpation MUSCULOSKELETAL: Moves all extremities. Strength/ROM intact, No edema, No calf tenderness. NEURO: Alert. Cranial nerves II through XII intact. Grossly intact SKIN: Warm, dry. Normal Color <Fredy Carrion MD - Last Filed: 04/29/23 15:59> Course Course Emergency Course: Received sign-out on this patient pending pelvic ultrasound. Ultrasound reveals 10 mm endometrial thickness with a small amount of endometrial fluid. There is also an ovarian cyst on the left, possibly simple cyst versus resolving hemorrhagic cyst. On re-evaluation, patient continues to have lower abdominal pain. She declines any pain medications. Discussed the workup and strongly advised very close gynecologic follow-up. States that she has not seen gynecology in about 9 years. Will provide the phone number for our supervisor [employer], advised that she call tomorrow. Also recommended close follow-up with her PCP. Appropriate return precautions given. Patient is agreeable with this plan. Discharged in stable condition. <Marjan Hassan MD - Last Filed: 04/28/23 19:43> Vital Signs Vital signs: Vital Signs Temperature 97.6 F 04/28/23 11:46 Pulse Rate 72 04/28/23 11:46 Respiratory Rate 20 04/28/23 11:46 Blood Pressure 103/57 L 04/28/23 11:46 Pulse Oximetry 100 04/28/23 11:46 Temperature 97.6 F 04/28/23 11:46 Pulse Rate 64 04/28/23 19:32 Respiratory Rate 16 04/28/23 19:32 Blood Pressure 112/89 04/28/23 19:32 Pulse Oximetry 100 04/28/23 19:45 <Fredy Carrion MD - Last Filed: 04/29/23 15:59> Vital Signs Temperature 97.6 F 04/28/23 11:46 Pulse Rate 72 04/28/23 11:46 Respirator
== END 2023-04-28 20:05 | disposition home or self-care (01) ==
PROVIDERS: Emergency Provider Emergency Medicine; PCP Nurse Practitioner
DX: R10.31 Right lower quadrant pain (principal); R93.89 Abnormal findings on diagnostic imaging of other specified body structures; N83.202 Unspecified ovarian cyst, left side; N13.30 Unspecified hydronephrosis
CPT/HCPCS: 36415; 74176; 76830; 76856; 80053; 81003; 81025; 83690; 85025; 99284

== ENCOUNTER 2024-05-31 13:18 | Emergency (ER) | payer OTHER, SELFPAY ==
[2024-05-31 13:23] VITALS: BP 104/59; PULSE 95; RESP 20; TEMP 37.3; O2SAT 100
--- NOTE | 2024-05-31 13:40 | ED.EAR ---
HPI - Ear Problem General Chief complaint: Upper Respiratory Infection Stated complaint: Ear Pain Time Seen by Provider: 05/31/24 13:42 Source: patient and RN notes reviewed Mode of arrival: ambulatory Limitations: no limitations History of Present Illness HPI Narrative: 38-year-old female presents with concern for influenzalike symptoms since . She reports fatigue, runny nose, stuffy nose, sore throat. Reports she recently started having severe ear pain. She reports she is has decreased appetite. She has been taking Motrin. Complaint: ear pain Related Data Allergies Allergy/AdvReac Type Severity Reaction Status Date / Time hydrocodone Allergy Unknown Swelling Verified 04/28/23 11:34 Iodinated Contrast Media Allergy Unknown Unknown Verified 05/31/24 13:53 Review of Systems Review of Systems: CONSTITUTIONAL: Reports malaise, chills, sweats, fever. EYES: Denies visual changes, redness, or discharge. ENT: Reports rhinorrhea, congestion, bilateral ear pain CARDIOVASCULAR: Denies chest pain, palpitations, or edema. RESPIRATORY: Reports cough. Denies dyspnea. GASTROINTESTINAL: Denies abdominal pain, nausea, vomiting, diarrhea SKIN: Denies rash or itching. MUSCULOSKELETAL: Reports myalgia. NEUROLOGIC: Reports headache. All systems reviewed & are unremarkable except as noted in HPI and below PMFSH Past Medical History Medical History (Updated 05/31/24 @ 13:47 by Gayatri Cantu NP) Vomiting and diarrhea Generalized weakness Dizziness Social History Social History Smoking status: Never smoker Alcohol intake: never Comments At time of signature, agree with nursing past medical, surgical, social and family history. There is no relevant family history pertinent to the presenting complaint Exam Narrative: GENERAL: Nontoxic-appearing, well-nourished, and in no acute distress. HEAD: Normocephalic EYES: PERRLA, conjunctivae clear ENT: Nares clear. Mucous membranes moist. TM erythematous and bulging on the right, ruptured with serosanguineous drainage on the left; no tragal tenderness. Oropharynx not erythematous without lesions. Tonsils not enlarged and without exudate, no drooling, no hoarseness, no trismus, uvula midline. NECK: Supple. No lymphadenopathy CHEST: Clear to auscultation, breath sounds equal. No wheezing, rhonchi, rales, or stridor. No respiratory distress, speaks in full sentences. HEART: Regular rate and rhythm. No murmur heard. SKIN: Warm, dry, no rash. NEURO: Alert and oriented x3. PSYCH: Normal mood and affect Course Course Emergency Course: Patient is aware of diagnosis, understands and agrees to treatment plan. Anticipatory guidance given. Patient agrees to follow-up as directed and is aware of reasons to seek care at the emergency department. Portions of this record may have been created with voice recognition software Level of Care: [facility] Visit Vital Signs Vital signs: Vital Signs Temperature 99.1 F 05/31/24 13:23 Pulse Rate 95 05/31/24 13:23 Respiratory Rate 20 05/31/24 13:23 Blood Pressure 104/59 L 05/31/24 13:23 Pulse Oximetry 100 05/31/24 13:23 Oxygen Delivery Room Air 05/31/24 13:23 Temperature 99.1 F 05/31/24 13:23 Pulse Rate 95 05/31/24 13:23 Respiratory Rate 20 05/31/24 13:23 Blood Pressure 104/59 L 05/31/24 13:23 Pulse Oximetry 100 05/31/24 13:23 Oxygen Delivery Room Air 05/31/24 13:23 Reviewed. Medical Decision Making MDM Narrative Medical decision making narrative: I evaluated this in the [facility]. History is obtained from patient who is an independent historian and physical exam was performed.? Available medical records were reviewed. ? Exam findings and relevant testing show no acute concerns or changes; patient is non-toxic appearing and is in no distress. Differential diagnosis considered: [place] virus, strep pharyngitis, allergic rhinitis, upper respiratory tract infection, sinusitis, rhinosinusitis, nasopharyngitis. viral pharyngitis, otitis media, otitis externa, otitis effusion, cerumen impaction, foreign body. Exam findings show no acute concerns or changes; patient is non-toxic appearing and is in no distress. Patient is appropriate for outpatient treatment and follow-up. ? Differential diagnosis and treatment plan were discussed with the patient. Patient agrees with discussion and after shared medical decision making agrees with plan of care. All questions were answered to the patient's satisfaction. Patient is appropriate for outpatient treatment and follow-up. Vital Signs Vital Signs: Vital Signs Temperature 99.1 F 05/31/24 13:23 Pulse Rate 95 05/31/24 13:23 Respiratory Rate 20 05/31/24 13:23 Blood Pressure 104/59 L 05/31/24 13:23 Pulse Oximetry 100 05/31/24 13:23 Oxygen Delivery Room Air 05/31/24 13:23 Temperature 99.1 F 05/31/24 13:23 Pulse Rate 95 05/31/24 13:23 Respiratory Rate 20 05/31/24 13:23 Blood Pressure 104/59 L 05/31/24 13:23 Pulse Oximetry 100 05/31/24 13:23 Oxygen Delivery Room Air 05/31/24 13:23 Critical Care Time Critical Care Time Critical Care Time: No Discharge Plan Discharge Clinical Impression: Influenza A Otitis media Qualifiers: Otitis media type: suppurative Chronicity: acute Laterality: bilateral Recurrence: non-recurrent Spontaneous tympanic membrane rupture: without spontaneous rupture Qualified Code(s): H66.003 - Acute suppurative otitis media without spontaneous rupture of ear drum, bilateral Patient Disposition: Home, Self-Care Condition: Stable Instructions: Antibiotic Form, Influenza (ED), Ear Infection (GEN) Additional Instructions: Your influenza a test is positive. The antibiotics to help your ear infection will not help symptoms caused by influenza. You need to treat the symptoms with [id number] medications. Take antibiotic as directed for ear infection. Can combine Tylenol and ibuprofen together to enhance maximum pain relieving effects for the next 1-3 days as needed. Take nasal decongestants as directed. -Take strict precautions to prevent the spread of your virus. Be diligent about covering your cough (even when you are alone) and washing your hands frequently. -You may contagious until you have been symptom and/or fever free for 24 hours without fever reducing medicine -Alternate Ibuprofen and Tylenol for pain and fever relief (per package directions) -Drink plenty of fluid - drink fluid with electrolytes such as Gatorade or other oral re-hydration solution. Avoid caffeine, which can make dehydration worse. -Get plenty of rest to help your body heal. -Use a cool mist humidifier for chest and nasal congestion. -Eat RAW honey or use cough drops to ease throat discomfort -Do not smoke or expose children to secondhand smoke -Wash your hands frequently. -Please follow-up with your primary care doctor in the next 1-2 days if your symptoms do not improve. -If you have any worsening of symptoms or any other concerns please go to the ED immediately. -Please take medications as prescribed and continue taking your home medications as usual. Patient Language: Citizen Of [place] Prescriptions: New pseudoephedrine HCl [12 Hour Decongestant] 120 mg tablet extended release 120 mg PO Q12H PRN (Reason: nasal congestion) Qty: 20 0RF ofloxacin 0.3 % drops 5 drp LEFT EAR DAILY 7 Days Qty: 10 0RF amoxicillin-pot clavulanate 875-125 mg tablet 1 tablet PO Q12H 10 Days Qty: 20 0RF Follow-up/Referrals: Raul,Sailaja Lee MD [Primary Care Provider] - Stand Alone Forms: Work/School Release IP Time of Disposition: 13:52
[2024-05-31 14:04] LABS: EDINFLUASCREEN Positive (Negative); EDINFLUBSCREEN Negative (Negative)
== END 2024-05-31 13:55 | disposition home or self-care (01) ==
PROVIDERS: Emergency Provider Nurse Practitioner; PCP Pediatrics Pediatric Emergency Medicine
DX: J10.1 Influenza due to other identified influenza virus with other respiratory manifestations (principal); H66.003 Acute suppurative otitis media without spontaneous rupture of ear drum, bilateral
CPT/HCPCS: 87804; 99213; G0463

== ENCOUNTER 2025-01-28 19:49 | Emergency (ER) | payer OTHER, SELFPAY ==
--- OUTSIDE RECORDS SUMMARY | 2017-05-10 06:00 | XMS_ITS | Continuity of Care Document ---
Author Organization [facility] Address [address] [facility] [address] [place] [address] Phone Care Team Providers Care [facility] Worker Name Role Phone Matty Arguello PA-C Unavailable Unavailable Allergies, Adverse Reactions, Alerts Substance Reaction Status Criticality HYDROCODONE BITARTRATE Unknown Active No In formation acetaminophen Unknown Active No Information Medications Medication Instructions Dosage Effective Dates (start - stop) Status Comments No Drug Therapy Prescribed Procedures Procedure Date OFFICE/OUTPATIENT VISIT EST OFFICE/OUTPATIENT VISIT [facility] Advance Directives Directive Yes / No Effective Date File Name No Information Encounters Encounter Description Practice Location Reason(s) For Visit Diagnoses Date Provider Providers Copied on Encounter OFFICE/OUTPAT IENT VISIT EST [facility], [address] [place] [address], [address], [place] tel:[phone] [facility] Other specified sprain of left wrist, subsequent encounter [address] [place] [address] [address], [place], [place], [id number] , [place]. tel: [phone] OFFICE/OUTPAT IENT VISIT [facility], [address] [place] [address], [address], [place] tel:[phone] [facility] Other specified sprain of left wrist, initial encounter 8 Mirna Perea. [address] [place], [place], [id number] . tel: [phone] Family History Family Member Type Diagnosis Age At Onset Father Problem (finding) hypertension Payers Payer name Insurance type Covered republican ID Authoriza tion(s) [facility] Choice/Choice Plus E2 [id number] Social History Type Description Quantity Date Captured [...]
[2025-01-28 19:49] VITALS: BP 119/95; PULSE 88; RESP 18; TEMP 36.2; O2SAT 100
--- OUTSIDE RECORDS SUMMARY | 2025-01-28 20:16 | XMS_ITS | Clinical Summary ---
Author Organization [facility] Address [address] [place] [address] Care Team Providers Care Anchorer Name Role Phone Unavailable Primary Care Provider Unavailabl e Source Comments [facility],non-owned Affiliates and Associated Physician Practices is amultiple site organization consisting of ambulatory clinics and hospital sitesin [place], [place], [place] and [place]. This disclosure is being madepursuant to the Care Everywhere program and may not contain all information available regarding this patient. Last updated 17.[facility] Social History Tobacco Use Types Packs/Day Years Used Date Smoking Tobacco: Never Assessed Comments Unknown Sex and Gender Information Value Date Recorded Sex Assigned at Not on file Legal Sex Female 1:21 PM [employer] Gender Identity Not on file Sexual Orientation Not on file Plan of Treatment Health Maintenance Due Date Last Done Comments HIV SCREENING 2000 HEPATITIS C SCREENING 08/30/2003 DTAP/TDAP/TD VACCINES (1 - Tdap) 2004 HEPATITIS B VACCINE (1 of 3 - 19+ 3-dose series) 2004 HPV VACCINE (1 - 3-dose SCDM series) 2012 DEPRESSION SCREENING 04/01/2024 COVID-19 VACCINE ( - 2023-2 5 season) 2024 INFLUENZA VACCINE (#1) 2024 ZOSTER VACCINE (1 of 2) 09/04/2035 HIB VACCINE Aged Out No longer eligi ble based on patient's age to complete this topic MENINGOCOCCAL (Group B) VACC INE SHARED DECISION-MAKING Aged Out No longer eligibl e based on patient's age to complete this topic MENINGOCOCCAL GROUPS A/C/Y/W VACCINE Aged Out No longer eligible b ased on patient's age to complete this topic PNEUMOCOCCAL VACCINE Aged Out No long er eligible based on patient's age to complete this topic
--- OUTSIDE RECORDS SUMMARY | 2025-01-28 20:16 | XMS_ITS | Data Portability ---
Author Organization HELDER - [facility], PIsabella, [facility] Address [address] [place] [address] Assessment Encounter Date Assessment Date Assessment LastModified by Organization Details LastModified Time 06/08/2014 06/08/2014 Sonia IgG and IgE with vegetables and celiac panel [email or web address] Not available 06/08/2014 15:39:09 10/28/2017 10/28/2017 Concerned about systemic infection - Go the ER [email or web address] Not available 10/28/2017 16:36:23 Plan of Treatment Reminders Order Date Submit Date Provider Last Modified By Organization Details Last Modified Time Details Appointments None recorded. Lab T3, reverse, serum 2014 015 TRANG Not available 5 20:36:43 vitamin D3, 25-hydroxy , serum 2014 015 TRANG Not available 5 20:36:43 CMP, serum or plasma 2014 015 TRANG Not available 5 20:36:41 TSH, serum or plasma 2014 015 TRANG Not available 5 20:36:44 T4, free, serum 2014 015 TRANG Not available 5 20:36:44 T3, free, serum or plasma 2014 015 TRANG Not available 5 20:36:45 CBC 2014 015 TRANG Not available 5 20:36:41 vitamin B12 + folate, serum or blood 2014 015 TRANG Not available 5 20:36:42 iron + TIBC + ferritin, serum 2014 015 [email or web address] Not available 5 11:55:37 Referral None recorded. Procedures None recorded. Surgeries None recorded. Imaging XR, wrist, 3 or more view - include navicular view 2017 018 smis [facility], [address], [place], [address], 8 16:48:55 Medication Orders Collyer 2014 015 [email or web address] [facility], [address] [facility], [place], [address], 8 16:11:52 Patient TargetsNo targets recorded. Patient Instructions Encounter Date Encounter Id Patient Instructions Last Modified By Organization Details Last Modified Time 06/08/2014 [id number] Magnesium citrat e 300-400 mg nightly x 2 weeks, then may increase to 300-400 mg twice daily if needed; at onset of migraine, take approx 1000 mg x 1. Follow up with chiropractor Dr. Darío Last Or Dr. Herman Ballesteros [facility] nasal spray 2 sprays/nostril twice daily ([address]). Stop if become . Medications reviewed, side effects discussed. Call or return to clinic if questions or concerns. Return to clinic if symptoms worsen or persist. [email or web address] Not available 06/08/2014 15:44:45 04/25/2017 [id number] See hand surgeon Mauricio [email or web address] Not available 04/25/2017 14:18:14 Reason for Referral None Reported. Results Created Date Observation Date Name Description Value Unit Range Abnormal Flag Note LastModifiedBy Organization Detail LastModifiedTime 06/09/19 15 06/09/2014 CBC WBC 5.6 x10e3 /uL 3.4-10 .8 Not Available [facility] ([facility]) [address], [place], [address], 06/13/2014 20:36:41 06/09/19 15 06/09/2014 CBC RBC 4.81 x10e6 /uL 3.77-5 .28 Not Available [facility] ([facility]) [address] [facility] [place], [address], 06/13/2014 20:36:41 06/09/19 15 06/09/2014 CBC hemoglobin 13.3 g/dL 11.1-1 5.9 Not Available [facility] ([facility]) [address] [facility] [place], [address], 06/13/2014 20:36:41 06/09/19 15 06/09/2014 CBC hematocrit 41.1 % 34.0-4 6.6 Not Available [facility] ([facility]) [address] [facility] [place], [address], 06/13/2014 20:36:41 06/09/19 15 06/09/2014 CBC MCV 85 fL 79-97 Not Available [facility] ([facility]) [address] [place] [place], [address], 06/13/2014 20:36:41 06/09/19 15 06/09/2014 CBC MCH 27.7 pg 26.6-3 3.0 Not Available [facility] ([facility]) [address] [facility] [place], [address], 06/13/2014 20:36:41 06/09/19 15 06/09/2014 CBC MCHC 32.4 g/dL 31.5-3 5.7 Not Available [facility] ([facility]) [address] [facility] [place], [address], 06/13/2014 20:36:41 06/09/19 15 06/09/2014 CBC RDW 12.9 % 12.3-1 5.4 Not Available [facility] ([facility]) [address] [facility] [place], [address], 06/13/2014 20:36:41 06/09/19 15 06/09/2014 CBC platelets 170 x10e3 /uL 150-37 9 Not Available [facility] ([facility]) [address] [place], [address], 06/13/2014 20:36:41 06/09/19 15 06/09/2014 CBC neutrophils 47 % Not Avai lable [facility] ([facility]) [address] [place], [address], 06/13/2014 20:36:41 06/09/19 15 06/09/2014 CBC lymphs 39 % Not Available [facility] ([facility]) [address] [place], [address], 06/13/2014 20:36:41 06/09/19 15 06/09/2014 CBC monocytes 9 % Not Availa ble [facility] ([facility]) [address] [place], [address], 06/13/2014 20:36:41 06/09/19 15 06/09/2014 CBC eos 4 % Not Available [facility] ([facility]) [address] [place], [address], 06/13/2014 20:36:41 06/09/19 15 06/09/2014 CBC basos 1 % Not Available [facility] ([facility]) [address] [place], [address], 06/13/2014 20:36:41 06/09/19 15 06/09/2014 CBC neutrophils (absolute) 2.6 x10e3 /uL 1.4-7. 0 Not Available [facility] ([facility]) [address] [place], [address], 06/13/2014 20:36:41 06/09/19 15 06/09/2014 CBC lymphs (absolute) 2.2 x10e3 /uL 0.7-3. 1 Not Available [facility] ([facility]) [address] [place], [address], 06/13/2014 20:36:41 06/09/19 15 06/09/2014 CBC monocytes(ab solute) 0.5 x10e3 /uL 0.1-0. 9 Not Available [facility] ([facility]) [address] [place], [address], 06/13/2014 20:36:41 06/09/19 15 06/09/2014 CBC eos (absolute) 0.2 x10e3 /uL 0.0-0. 4 Not Available [facility] ([facility]) [address] [place], [address], 06/13/2014 20:36:41 06/09/19 15 06/09/2014 CBC baso (absolute) 0.0 x10e3 /uL 0.0-0. 2 Not Available [facility] ([facility]) [address] [place], [address], 06/13/2014 20:36:41 06/09/19 15 06/09/2014 CBC immature granulocytes 0 % Not Available [facility] ([facility]) [address] [place], [address], 06/13/2014 20:36:41 06/09/19 15 06/09/2014 CBC immature grans (abs) 0.0 x10e3 /uL 0.0-0. 1 Not Available [facility] ([facility]) [address] [place], [address], 06/13/2014 20:36:41 06/09/19 15 06/09/2014 CMP, serum or plasm a glucose, serum 83 mg/dL 65-99 Not Available [facility] ([facility]) [address] [place], [address], 06/13/2014 20:36:41 06/09/19 15 06/09/2014 CMP, serum or plasm a BUN 15 mg/dL 6-20 Not Available [facility] ([facility]) [address] [place], [address], 06/13/2014 20:36:41 06/09/19 15 06/09/2014 CMP, serum or plasm a creatinine, serum 0.68 mg/dL 0.57-1 .00 Not Available [facility] ([facility]) [address] [place], [address], 06/13/2014 20:36:41 06/09/19 15 06/09/2014 CMP, serum or plasm a eGFR if nonafricn AM 119 mL/mi n/1.7 3 >59 Not Available [facility] ([facility]) [address] [place], [address], 06/13/2014 20:36:41 06/09/19 15 06/09/2014 CMP, serum or plasm a eGFR if africn AM 138 mL/mi n/1.7 3 >59 Not Available [facility] ([facility]) [address] [place], [address], 06/13/2014 20:36:41 06/09/19 15 06/09/2014 CMP, serum or plasm a BUN/creatini ne ratio 22 8-20 high Not Available [facility] ([facility]) [address] [place], [address], 06/13/2014 20:36:41 06/09/19 15 06/09/2014 CMP, serum or plasm a sodium, serum 143 mmol/ L 134-14 4 Not Available [facility] ([facility]) [address] [place], [address], 06/13/2014 20:36:41 06/09/19 15 06/09/2014 CMP, serum or plasm a potassium, serum 3.9 mmol/ L 3.5-5. 2 Not Available [facility] ([facility]) [address] [place], [address], 06/13/2014 20:36:41 06/09/19 15 06/09/2014 CMP, serum or plasm a chloride, serum 106 mmol/ L 97-108 Not Available [facility] ([facility]) [address] [facility], [place], [address], 06/13/2014 20:36:41 06/09/19 15 06/09/2014 CMP, serum or plasm a carbon dioxide, total 23 mmol/ L 18-29 Not Available [facility] ([facility]) [address] [facility] [place], [address], 06/13/2014 20:36:41 06/09/19 15 06/09/2014 CMP, serum or plasm a calcium, serum 9.0 mg/dL 8.7-10 .2 Not Available [facility] ([facility]) [address] [facility] [place], [address], 06/13/2014 20:36:41 06/09/19 15 06/09/2014 CMP, serum or plasm a protein, total, serum 6.4 g/dL 6.0-8. 5 Not Available [facility] ([facility]) [address] [facility], [place], [address], 06/13/2014 20:36:41 06/09/19 15 06/09/2014 CMP, serum or plasm a albumin, serum 4.4 g/dL 3.5-5. 5 Not Available [facility] ([facility]) [address] [facility], [place], [address], 06/13/2014 20:36:41 06/09/19 15 06/09/2014 CMP, serum or plasm a globulin, total 2.0 g/dL 1.5-4. 5 Not Available [facility] ([facility]) [address] [place], [address], 06/13/2014 20:36:41 06/09/19 15 06/09/2014 CMP, serum or plasm a A/G ratio 2.2 1.1-2. 5 Not Available [facility] ([facility]) [address] [facility] [place], [address], 06/13/2014 20:36:41 06/09/19 15 06/09/2014 CMP, serum or plasm a bilirubin, total 0.3 mg/dL 0.0-1. 2 Not Available [facility] ([facility]) [address] [place] [address], [address], 06/13/2014 20:36:41 06/09/19 15 06/09/2014 CMP, serum or plasm a alkaline phosphatase, S 93 IU/L 39-117 Not Available [facility] ([facility]) [address] [place] [address], [address], 06/13/2014 20:36:41 06/09/19 15 06/09/2014 CMP, serum or plasm a AST (SGOT) 14 IU/L 0-40 Not Available [facility] ([facility]) [address] [place] [address], [address], 06/13/2014 20:36:41 06/09/19 15 06/09/2014 CMP, serum or plasm a ALT (SGPT) 14 IU/L 0-32 Not Available [facility] ([facility]) [address] [place] [address], [address], 06/13/2014 20:36:41 06/09/19 15 06/09/2014 TIBC (tota l iron- camille ng capac ity), serum iron bind.cap.(TI BC) 310 ug/dL 250-45 0 Not Available [facility] ([facility]) [address] [place] [address], [address], 06/13/2014 20:36:42 06/09/19 15 06/09/2014 TIBC (tota l iron- camille ng capac ity), serum UIBC 235 ug/dL 150-37 5 Not Available [facility] ([facility]) [address] [place] [address], [address], 06/13/2014 20:36:42 06/09/19 15 06/09/2014 TIBC (tota l iron- camille ng capac ity), serum iron, serum 75 ug/dL 35-155 Not Available [facility] ([facility]) [address] [place], [address], 06/13/2014 20:36:42 06/09/19 15 06/09/2014 TIBC (tota l iron- camille ng capac ity), serum iron saturation 24 % 15-55 Not Available [facility] ([facility]) [address] [place], [address], 06/13/2014 20:36:42 06/09/19 15 06/09/2014 vitam in B12 + folat e, serum or blood vitamin B12 964 pg/mL 211-94 6 high Not Available [facility] ([facility]) [address] [place], [address], 06/13/2014 20:36:42 06/09/19 15 06/09/2014 vitam in B12 + folat e, serum or blood folate (folic acid), serum >19.9 NG/mL >3.0 A SERUM FOLAT E MADI NTRAT ION OF LESS THAN 3.1 NG/ML IS CONSI DERED TO REPRE SENT CLINI JCARLOS DEFIC IENCY . Not Available [facility] ([facility]) [address] [facility], [place], [address], 06/13/2014 20:36:42 06/09/19 15 06/13/2014 T3, rever se, serum reverse T3, serum 11.1 NG/dL 9.2-24 .1 Not Available [facility] ([facility]) [address] [place], [address], 06/13/2014 20:36:43 06/09/19 15 06/09/2014 vitam in D3, 25-hy droxy , serum vitamin D, 25-hydroxy 54.0 NG/mL 30.0-1 00.0 VITAM IN D DEFIC IENCY HAS BEEN DEFIN ED BY THE INSTI TUTE OF MEDIC INE AND AN ENDOC RINE SOCIE TY PRACT ICE GUIDE LINE A LEVEL OF SERUM 25-OH VITAM IN D LESS THAN 20 NG/ML (1,2) . THE ENDOC RINE SOCIE TY WENT ON TO FURTH ER DEFIN E VITAM IN D INSUF FICIE NCY A LEVEL BETWE EN 21 AND 29 NG/ML (2). 1. IOM (INST ITUTE OF MEDIC INE). 2010. DIETA RY REFER ENCE INTAK ES FOR CALCI UM AND D. BLAYNE PRINCE DC: [facility] PRESS . 2. EUGENIA Boone MF, HELEN DÍAZ NC, ARTHUR OFF-F ERRAR I THRASHER, ET AL. EVALU ATION , TREAT MENT, AND PREVE NTION OF VITAM IN D DEFIC IENCY : AN ENDOC RINE SOCIE TY CLINI JCARLOS PRACT ICE GUIDE LINE. JCEM. 2010; 96(7) :1911 -30. Not Available [facility] ([facility]) [address] [place], [address], 06/13/2014 20:36:43 06/09/19 15 06/09/2014 TSH, serum or plasm a TSH 1.080 uIU/m L 0.450- 4.500 Not Available [facility] ([facility]) [address] [place], [address], 06/13/2014 20:36:44 06/09/19 15 06/09/2014 T4, free, serum T4,free(dire ct) 1.20 NG/dL 0.82-1 .77 Not Available [facility] ([facility]) [address] [place], [address], 06/13/2014 20:36:44 06/09/19 15 06/09/2014 T3, free, serum or plasm a triiodothyro nine,free,se rum 2.8 pg/mL 2.0-4. 4 Not Available [facility] ([facility]) [address] [place], [address], 06/13/2014 20:36:45 06/09/19 15 06/09/2014 gia tin, serum or plasm a ferritin, serum 65 NG/mL 15-150 Not Available [facility] ([facility]) [address] [facility], [place], [address], 06/13/2014 20:36:45 06/09/19 15 06/08/2014 one speci men ident ifier one specimen identifier COMMEN T THE SPECI MEN RECEI JOSE INCLU DED ONLY ONE PATIE NT IDENT IFIER ON THE PRIMA RY COLLE CTION CONTA INER. OUR LABOR ATORY ACCRE DITIN G AGENC Y STATE S ALL PRIMA RY SPECI MEN CONTA INERS MUST BE LABEL ED WITH 2 IDENT IFIER S AT THE TIME OF COLLE CTION . Not Available [facility] ([facility]) [address] [facility], [place], [address], 06/13/2014 20:36:45 04/25/19 18 04/25/2017 X wrist , lt, min 3V* No observ ation record ed. TRANG [facility] [id number] [facility] [place], [address], 05/08/2017 16:11:12 11/19/19 19 11/18/2018 CT, abdom en + pelvi s, w/o contr ast No observ ation record ed. [email or web address] Not Available 11/24 00:03:44 Result Notes None recorded. Problems Name Problem SNOMED Code Status Onset Date Resolution Date Notes Provider Name and Address Organization Details Recorded Time Migraine 45436399 Active Leesa carter [place] [facility] 5 15:44:45 Spasm 67850945 Active [facility] 5 15:44:45 Urticaria 742337185 Active Oli Mandujano MD [address] [place], [address] , HELDER Schmitt [facility] 5 19:52:22 Problem Notes None recorded. Procedures Surgical History Date Name Laterality Status Provider Name and Address Organization Details Recorded Time Hernia Repair completed [facility] 06/08/2014 15:09:37 Imaging Results None recorded. Procedure Notes None recorded. Medical Equipment None Reported. Allergies Allergen ID Allergen Name Allergen Category Reaction Reaction Severity Criticality Documentation Date Start Date Code Code System Note Provider Name and Address Organization Details Recorded Time acetamino phen / hydrocodo ne medicatio n Not available Not available Not available 06/08/2014 48028 2 RxNorm Anny carter [facility] 5 15:09:37 Medications Name Sig Start Date Stop Date Status Note LastModified by Organization Details LastModified Time Collyer 200 2d; 12x 3 bid 10/28 completed Not Available Not Available Not Available prednisone 20 mg tablet TK 2 TS PO D FOR 5 DAYS THEN TK 1 T D FOR 5 DAYS 10/28 completed Not Available Not Available Not Available methylprednisol one 4 mg tablets in a dose pack TK UTD 10/28 completed Not Available Not Available Not Available Vitals Date Recorded Body height Body mass index (BMI) Body weight Heart rate Systolic And Diastolic Provider Name and Address Organization Details Last Updated DateTime 04/25/2017 177.8 cm 20.5 kg/m2 25601.71 g 71 /min 111/75 mm[Hg] Rosaline Dennison [facility] 04/25/2017 13:39:58 Date Recorded Body weight Heart rate Body mass index (BMI) Body height Systolic And Diastolic Provider Name and Address Organization Details Last Updated DateTime 06/08/2014 48448.95 8296 g 78 /min 17.3 kg/m2 177.8 cm 95/58 mm[Hg] Anny Jonas [facility] 06/08/2014 15:09:37 Date Recorded Body weight Heart rate Body mass index (BMI) Body height Systolic And Diastolic Provider Name and Address Organization Details Last Updated DateTime 09/09/2014 66005.35 7094 g 85 /min 18.1 kg/m2 177.8 cm 96/60 mm[Hg] Elizabeth Rodriguez [place] Rico [facility] 09/09/2014 19:13:44 Date Recorded Body height Body mass index (BMI) Body weight Provider Name and Address Organization Details Last Updated DateTime 10/28/2017 177.8 cm 21.1 kg/m2 92109.08 g Anny Schmitt [facility] 10/28/2017 16:11:37 Social History Question Answer Notes LastModified by Organizat ion Details LastModified Time Tobacco Smoking Status Never Smoker HELDER Duff [facility] 06/08/2014 15:09:38 What Was The Date Of Your Most Recent Tobacco Screening? 04/25/2017 Information n ot available 10/23/2018 Sex: Unknown Functional Status Question Answer Note LastModified by Organization D etails LastModified Time What is your level of alcohol consumption? None [email or web address] Information not available 06/08/2014 Mental Status None recorded. Family History Relationship Description Onset Age of this Age Resolved Age Notes LastModified by Organization Details LastModified Time Father Hypertensive disorder [email or web address] Not available 2014 19:48:00 Medical History Condition Response Coronary Artery Disease N Gout N Blood Diseases N Kidney Stones N Hyperthyroidism N Depression N COPD N Hypothyroidism N Developmental or Behavioral Disorders N Anxiety Disorder N Muscle, Joint, or Bone Problems N Vision or Eye Problems N Arthritis N Head Injury/Concussion N Congenital Anomalies N Cancer N Stroke N ADHD N Bladder or Kidney Problems N Hospital Admission other than N High Cholesterol N Liver Disease N Fibromyalgia N Headaches N Kidney Disease N Ear or Hearing Problems N Thyroid Problems N Skin Problems N Anemia N Constipation N Mental Illness N Diabetes N Bedwetting N Seizures/Epilepsy N Heart Problems/Murmur N Tuberculosis N Diverticulitis N Allergies N Asthma N Reflux/GERD N Heart Disease N Pulmonary Embolism N Hypertension N Osteoporosis N Chicken Pox Y Autism Spectrum Disorder (ASD) N Gynecological HistoryNo gynecological history recorded. Obstetrics History GPAL:G 0 P 0 0 0 0 Past Encounters Encounter ID Performer Location Encounter Start Date Encounter Closed Date Diagnosis/Indication Diagnosis SNOMED-CT Code Diagnosis ICD10 Code Diagnosis IMO Codes Diagnosis Note [id number] Leesa Chandler Main Office [address] [place] [address] 06/08/2014 14:29:44 06/08/2014 18:28:13 Migraine 45452281 History of anemia 396122907 Spasm 12044170 [id number] Oli Mandujano MD Main Office [address] [place] [address] 09/09/2014 19:11:10 09/09/2014 20:00:37 Urticaria 003671671 [id number] Oli Mandujano MD Main Office [address] [place] [address] 04/25/2017 13:23:45 04/25/2017 14:25:39 Injury of wrist 369275860 S69.92XA [id number] Oli Mandujano MD Main Office [address] [place] [address] 10/28/2017 16:07:45 10/28/2017 16:35:15 Cellulitis 321280505 L03.90 Health Concerns Section Related Observation LastModified by Organization Detai ls LastModified Time None Recorded Concern Status LastModified by Organization Details LastModified Time None Recorded Advance Directives Directive None Recorded Payers Insurance Date Sequence Insurance Name Policy Number Policy Quinn Covered Member ID Quinn Member ID Guarantor Name 10/28/2017 1 [facility] [id number] Sushil Downs [id number] Radha Himanshu Notes Date Note Type Note Provider Name and Address Organization Details Recorded Time 06/08/2014 text/html Generic HPI TemplateReported by PatientPt presents to discuss migraines, since childhood, worse past couple of months. Most days, pain forehead between and behind eyes. Sometimes has light sensitivity. Sharp pains.Has tried essential oils, not really helping. Advil helps some. Heat helps. Sleeping helps but has difficulty falling asleep when she gets them.Had brain MRI done and some other tests 2 yrs ago and thinks she saw a neurologist at that time. Was told all negative.3 children, ages 4.5, 2.5, and almost 1.LMP: 3 weeks agoNot currently but may have another child in the future.Does have some sinus allergies on occasion/sinus stuffiness that does tend to trigger migraines on occasion.Energy: okSleep: okDiet:Breakfast: eggs, gordon, oats, maple syrupLunch: veggies, almond butter snack: chicken, veggiesDinner: veggie/turkeyWater: lotsDigestion: BMs usually every other dayHx anemia in the past with low iron [facility] 06/08/2014 15:46:25 09/09/2014 text/html 3 days of waking with swollen painful very itchy nodules on backs of hands and less so on great toes - >> later in day. A bit worse each day. itching Oli Mandujano MD [address] [facility], [place], [address], [facility] 09/09/2014 19:52:35 04/25/2017 text/html 3-25-1943Inhp on ice struck L wrist on impact. Was seen and X rayed at ER in [facility] - was told it was just sprained. has worn sling but still very painful and cannot use. Oli Mandujano MD [address] [place], [address], [facility] 04/25/2017 14:21:51 10/28/2017 text/html SaturdayWas petting goats and was working in the garden.Usually easy to get poison sanam. Was taking probiotics.Worked a lot on Saturday. Then Saturday couldn't even open eyes. karen Mandujano MD [address], [place], [address], [facility] 10/30/2017 20:38:38 OBGyn Episode No OBEpisode recorded.
--- OUTSIDE RECORDS SUMMARY | 2025-01-28 20:16 | XMS_ITS | Clinical Summary ---
Author Organization [facility] al Address [address] [place] [address] Care Team Providers Care Fine Chemicals Operator Name Role Phone Sailaja Corley NP Primary Care Provider [phone] Allergies Active Allergy Reactions Criticality Noted Date Comments Hydrocodone-Acetaminophen Swelling Medium 01/29/2011 Swelling Iodinated Contrast Media Vomiting Low 04/28/2023 Medications No known medications Active Problems Problem Noted Date Diagnosed Date Memory changes 07/18/2020 Overview (04/28/2023): Started approx 6-7 months ago. Thought it was mom brain at first. Worsening sx. +forgetful, will lose long periods of her day. +putting objects in inappropriate places, freezer food in pantry. +spaces out, daughter will be talking and patient will come to and have no idea what her child is talking about. +excessive thirst +worsening migraines- takes Excedrin +floaters in vision- went to ophthalmology and found some changes in her optic nerve. Has to wear sunglasses. + dizziness- hx of hypoglycemia. Started on hypoglycemia diet which has helped. Patient follows with a functional health physician who ordered blood work approx 1 mo ago. She did not bring copies of the blood work with her, but states that all tests were WNL. Last Assessment & Plan: MRI of brain to rule out pituitary or other brain tumor. If negative- will send to neurology. Please send copies of labs to office for review. 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 Pain in female pelvis 07/14/2015 Family History Medical History Relation Name Comments Cancer Other Reported Family History Of Cancer - MGM (Added by TW Conv) Hypertension Other Reported Previo us High Blood Pressure - Father (Added by TW Conv) Premature Menopause Other Prematur e Menopause - Maternal Great Grandmother (Added by TW Conv) Relation Name Status Comments Other Social History Tobacco Use Types Packs/Day Years Used Date Smoking Tobacco: Never Assessed Comments No Sex and Gender Information Value Date Recorded Sex Assigned at Not on file Legal Sex 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 Gender Identity Not on file Sexual Orientation Not on file Obstetrics History Last Filed Vital Signs Vital Sign Reading Time Taken Comments Blood Pressure 90/58 04/28/2023 10:52 AM 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 TENDER Pulse 80 04/28/2023 10:52 AM 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 TENDER Temperature 36.6 C (97.8 F) 04/28/2023 10:52 AM 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 TENDER Respiratory Rate 18 04/28/2023 10:52 AM 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 TENDER Oxygen Saturation 97% 04/28/2023 10:52 AM 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 TENDER Inhaled Oxygen Concentration - - Weight 61.7 kg (136 lb) 04/28/2023 10:52 AM 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 TENDER Height 177.8 cm (5' 10) 04/28/2023 10:52 AM 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 TENDER Body Mass Index 19.51 04/28/2023 10:52 AM 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 TENDER Plan of Treatment Health Maintenance Due Date Last Done Comments Cervical Cancer Screening 1985 Depression Screening 1985 Hepatitis C Screening 1985 DTaP/Tdap/Td Vaccine (1 - Tdap) 1996 Varicella Vaccines (1 of 2 - 13+ 2-dose series) 1998 Hepatitis B Screening 09/04/2003 Regular Well Visit/Exam 18-64 09/04/2003 HPV Vaccines (1 - 3-dose SCD M series) 2012 Influenza Vaccine (#1) 2024 Pneumococcal vaccine <65 Aged Out No longer eligible based on patient's age to complete this topic Insurance [facility] CHOICE PLUS Care Teams Fine Chemicals Operator Relationship Specialty Start Date End Date Sailaja Corley NP PCP - General 04/28/23
[2025-01-28 20:26] LABS: Alanine Aminotransferase 20 U/L (6-35); Albumin Level 4.7 g/dL (3.5-5.1); Alkaline Phosphatase 79 U/L (38-126); Anion Gap 11 mmol/L (4-12); Aspartate Amino Transferase 28 U/L (14-36); Bilirubin,Total 0.6 mg/dL (0.2-1.3); Blood Urea Nitrogen 15 mg/dL (7-17); Calcium 9.6 mg/dL (8.4-10.2); Carbon Dioxide 24 mmol/L (22-30); Chloride 107 mmol/L (98-107); Estimated CRCL calculation 66 ml/min; Estimated Glomerular Filt Rate > 60; Glucose 117 mg/dL (65-110); Osmolality Calculated 295 mOsm/kg (285-295); Potassium 3.4 mmol/L (3.4-5.0); Sodium 142 mmol/L (137-145); Total Protein 7.5 g/dL (6.3-8.2)
--- NOTE | 2025-01-28 20:27 | ED_ITS ---
HPI - Nausea/Vomiting/Diarrhea General Chief complaint: Nausea/Vomiting/Diarrhea Stated complaint: diarrhea, vomiting Time Seen by Provider: 01/28/25 19:56 Source: patient and family Mode of arrival: ambulatory Limitations: no limitations History of Present Illness HPI Narrative: This is a 39-year-old female who presents with nausea with no vomiting no abdominal pain no chills no chest pain no fever chills no shortness of breath no diarrhea constipation no dysuria or hematuria presents with weakness and states that she sees functional medicine practice and usually when she feels weak gets IV normal saline. Was unable to get into a functional medicine practice and feels dehydrated otherwise some weakness with no fever chills. MD elicited complaint: nausea Onset (ago): hour(s) Description of vomiting: watery Related Data Allergies Allergy/AdvReac Type Severity Reaction Status Date / Time hydrocodone Allergy Unknown Swelling Verified 01/28/25 19:51 Iodinated Contrast Media Allergy Unknown Unknown Verified 01/28/25 19:51 Review of Systems 2 Review of Systems: All systems reviewed & are unremarkable except as noted in HPI and below PMFSH Past Medical History Medical History Vomiting and diarrhea Generalized weakness Dizziness Social History Social History Smoking status: Never smoker Alcohol intake: never Exam 2 Const: General: healthy appearing and no acute distress Nutritional Appearance: well nourished Orientation/consciousness: patient oriented x3 Limitations: no limitations Neck: Neck: normal visual inspection, no lymphadenopathy and no meningeal signs Chest: Chest palpation & inspection: normal inspection of the chest Resp: Effort & Inspection: normal respiratory effort Auscultation: clear to auscultation bilaterally Cardio: Rate: regular rate Rhythm: regular rhythm GI: GI Palp: Yes Soft to palpation Auscultation: normal bowel sounds : General: Yes bladder normal to palpation Skin: General skin exam: normal color Rashes: no rashes Wounds: no wounds Neuro: General: patient oriented x3, moves all extremities, no meningeal signs and no focal motor deficits Course Course Emergency Course: Medical decision making narrative: Patient was evaluated by myself in the emergency department. History obtained from the patient who is an independent historian physical exam performed witnessed by the nurse. Patient typically has episodes where she gets dehydrated and started on IV normal saline. Otherwise CMP performed and shows no acute abnormalities. Repeat assessment: Patient doing well on repeat exam with no acute distress Symptoms improved since arrival to the ED Vitals stable Patient agrees with the discussion and after shared medical decision making and agrees with discharge All questions answered to the patient's satisfaction. Advise follow-up with primary within 3 to 5 days. Vital Signs Vital signs: Vital Signs Temperature 36.2 C L 01/28/25 19:49 Pulse Rate 88 01/28/25 19:49 Respiratory Rate 18 01/28/25 19:49 Blood Pressure 119/95 H 01/28/25 19:49 Pulse Oximetry 100 01/28/25 19:49 Oxygen Delivery Room Air 01/28/25 19:49 Temperature 36.2 C L 01/28/25 19:49 Pulse Rate 88 01/28/25 19:49 Respiratory Rate 18 01/28/25 19:49 Blood Pressure 119/95 H 01/28/25 19:49 Pulse Oximetry 100 01/28/25 19:49 Oxygen Delivery Room Air 01/28/25 19:49 MDM - Nausea/Vomiting/Diarrhea Lab Data 01/28/25 20:05 Labs: Lab Results 01/28/25 Range/Units 20:05 Sodium 142 (137-145) mmol/L Potassium 3.4 (3.4-5.0) mmol/L Chloride 107 (98-107) mmol/L Carbon Dioxide 24 (22-30) mmol/L Anion Gap 11 (4-12) mmol/L BUN 15 (7-17) mg/dL Creatinine 1.01 H (0.7-1.0) mg/dL Estim Creat Clear Calc 66 ml/min Estimated GFR > 60 (59 - ) Glucose 117 H (65-110) mg/dL Calculated Osmolality 295 (285-295) mOsm/kg Calcium 9.6 (8.4-10.2) mg/dL Total Bilirubin 0.6 (0.2-1.3) mg/dL AST 28 (14-36) U/L ALT 20 (6-35) U/L Alkaline Phosphatase 79 (38-126) U/L Total Protein 7.5 (6.3-8.2) g/dL Albumin 4.7 (3.5-5.1) g/dL Critical Care Time Critical Care Time Critical Care Time: No Discharge Plan Discharge Clinical Impression: Generalized weakness, Dehydration Patient Disposition: Home Condition: Stable Instructions: Antibiotic Form, Dehydration (ED), Acute Nausea and Vomiting (ED) Additional Instructions: Advised follow-up with primary care physician within the next 3 to 5 days for further evaluation and treatment. Patient Language: Romanian Follow-up/Referrals: Barney,PATRICIA Menard [Primary Care Provider, Unknown] Time of Disposition: 20:32
[2025-01-28] MEDS: SODIUM CHLORIDE 0.9% IV 1,000 ML 999 ML IV CONT (20:47)
[2025-01-28 21:35] LABS: Influenza A QL RT-PCR Negative (Negative); Influenza B QL RT-PCR Negative (Negative); RSV RNA, RT-PCR Negative (Negative); SARS-CoV-2 RNA PCR Negative (Negative)
[2025-01-28] MEDS: IBUPROFEN 600 MG TABLET PO (21:53)
[2025-01-28 23:00] VITALS: BP 109/66; PULSE 68; RESP 16; TEMP 37.1; O2SAT 100
== END 2025-01-28 23:00 | disposition home or self-care (01) ==
PROVIDERS: Emergency Provider Emergency Medicine; PCP Nurse Practitioner
DX: R53.1 Weakness (principal); E86.0 Dehydration; Z20.822 Contact with and (suspected) exposure to COVID-19
CPT/HCPCS: 36415; 80053; 87637; 96360; 99283; A9270; J7030

== ENCOUNTER 2025-02-01 20:12 | Emergency (ER) | payer OTHER, SELFPAY ==
--- OUTSIDE RECORDS SUMMARY | 2017-05-10 05:00 | XMS_ITS | Continuity of Care Document ---
Author Organization [facility] Address [address] [facility] [address] [place] [address] Phone Care Team Providers Care Blunger Loader Name Role Phone Matty Arguello PA-C Unavailable Unavailable Allergies, Adverse Reactions, Alerts Substance Reaction Status Criticality HYDROCODONE BITARTRATE Unknown Active No In formation acetaminophen Unknown Active No Information Medications Medication Instructions Dosage Effective Dates (start - stop) Status Comments No Drug Therapy Prescribed Procedures Procedure Date OFFICE/OUTPATIENT VISIT EST OFFICE/OUTPATIENT VISIT [facility] Advance Directives Directive Yes / No Effective Date File Name No Information Encounters Encounter Description Practice Location Reason(s) For Visit Diagnoses Date Provider Providers Copied on Encounter OFFICE/OUTPAT IENT VISIT EST [facility], [address] [place] [address], [address], [place] tel:[phone] [facility] Other specified sprain of left wrist, subsequent encounter [address] [place] [address] [address], [place], [place], [id number] , [place]. tel: [phone] OFFICE/OUTPAT IENT VISIT [facility], [address] [place] [address], [address], [place] tel:[phone] [facility] Other specified sprain of left wrist, initial encounter 8 Mirna Perea. [address] [place], [place], [id number] . tel: [phone] Family History Family Member Type Diagnosis Age At Onset Father Problem (finding) hypertension Payers Payer name Insurance type Covered green party ID Authoriza tion(s) [facility] Choice/Choice Plus E2 [id number] Social History Type Description Quantity Date Captured Comments Alcohol Use Details Unknown Caffeine Use Details Unknown Tobacco Use Status No Information Smoking Status No Information Sex Female Chief Complaint And Reason For Visit No Information Reason For Referral Reason For Referral No Information Plan Of Treatment Date Type Action Status Referral Ordered: RADEX WRST COMPL MINIMUM 3 VIEWS LT ordered History Of Present Illness Encounter Date Complaint History Of Prese nt Illness No Information Functional Status Date Functional Assessmen t No Information Medications Administered Medication Instructions Dosage Effective Dates (start - stop) Status Comments No Drug Therapy Prescribed Instructions Date Instruction Additional Infor pio Immobilize as directed. Related to Sprain of left wrist, initial encounter Apply ice as tolerated. Related to Sprain of left wrist, initial encounter Assessments Type Assessment Date assessment Other specified sprain of left w rist, subsequent encounter Patient Care Teams Name Effective Dates (start - stop) Status Members No Information
[2025-02-01 20:22] VITALS: BP 119/84; PULSE 73; RESP 18; TEMP 37; O2SAT 100
--- NOTE | 2025-02-01 20:44 | ED.NAVMDI ---
HPI - Nausea/Vomiting/Diarrhea General Chief complaint: Nausea/Vomiting/Diarrhea Stated complaint: wellness check Time Seen by Provider: 02/01/25 20:37 Source: patient Mode of arrival: ambulatory Limitations: no limitations History of Present Illness HPI Narrative: 39 years old white female came to the ED with her significant other by private car complaining nausea and feeling dehydrated. Patient is telling me that usually get IV fluid with remarkable improvement. Patient was seen in our facility 3 days ago and received 1 L of normal saline with remarkable improvement. Was seen by her family physician office today and was not able to get IV access on her and scheduled to be seen by them tomorrow. Patient decided to come to us instead. She denies any fever, chills, vomiting, diarrhea. Patient declined any blood workup today. She requested 1 L of normal saline IV. Related Data Allergies Allergy/AdvReac Type Severity Reaction Status Date / Time hydrocodone Allergy Unknown Swelling Verified 01/28/25 19:51 Iodinated Contrast Media Allergy Unknown Unknown Verified 01/28/25 19:51 Review of Systems Review of Systems: All systems reviewed & are unremarkable except as noted in HPI and below PMFSH Past Medical History Medical History Vomiting and diarrhea Generalized weakness Dizziness Social History Social History Smoking status: Never smoker Alcohol intake: never Exam Narrative: General appearance: Well-developed, well-nourished Skin: Normal color Head: Normocephalic, nontraumatic Eyes: Clear conjunctiva ENT: Oropharynx normal, ears normal, nose normal Neck: Supple, nontender Chest and respiratory: Airway patent, no respiratory distress, no accessory muscle use Heart: Regular rate/rhythm Abdomen: Soft, nontender, no organomegaly, quiet bowel sounds Vascular: Normal peripheral pulses, normal capillary refill. Musculoskeletal: Normal range of motion, nontender back Neurologic: Alert and oriented ?3, PASSENGER CAR INSPECTOR is normal as tested, no gross motor deficit Course Vital Signs Vital signs: Vital Signs Temperature 37.0 C 02/01/25 20:22 Pulse Rate 73 02/01/25 20:22 Respiratory Rate 18 02/01/25 20:22 Blood Pressure 119/84 02/01/25 20:22 Pulse Oximetry 100 11/03/25 20:22 Oxygen Delivery Room Air 02/01/25 20:22 Temperature 37.0 C 02/01/25 20:22 Pulse Rate 73 02/01/25 20:22 Respiratory Rate 18 02/01/25 20:22 Blood Pressure 119/84 02/01/25 20:22 Pulse Oximetry 100 02/01/25 20:22 Oxygen Delivery Room Air 02/01/25 20:22 MDM - Nausea/Vomiting/Diarrhea MDM Narrative Medical decision making narrative: PATIENT REPORT NOT FEELING WELL WITH NAUSEA AND USUALLY IV FLUID IS THE ANSWER. SHE DECLINED ANY BLOOD WORKUP, WAS SEEN IN OUR FACILITY 4 DAYS AGO WITH NORMAL BLOOD WORKUP AND REMARKABLE IMPROVEMENT AFTER IV FLUID. VITAL SIGNS ARE STABLE PHYSICAL EXAMINATION UNREMARKABLE DIFFERENTIAL DIAGNOSIS INCLUDE ANXIETY, PSYCH DISORDER, DEHYDRATION, SUPRARENAL GLAND DISEASE. PATIENT DECLINED ANY BLOOD WORKUP TODAY AND WOULD LIKE TO HAVE IV FLUID ONLY. PATIENT SYMPTOM RESOLVED AND FEELS MUCH BETTER AFTER 1 L OF IV FLUID. Differential Diagnosis Differential diagnosis: Likely gastroenteritis, dehydration and other Medical Records Attestation: I reviewed the patient's medical records. Lab Data Attestation: I reviewed the patient's lab results. Critical Care Time Critical Care Time Critical Care Time: No Discharge Plan Discharge Clinical Impression: Nausea Patient Disposition: Home Condition: Improved Instructions: Acute Nausea and Vomiting (DC) Additional Instructions: RETURN IF SYMPTOMS ARE WORSENING , CALL YOUR FAMILY PHYSICIAN FOR APPOINTMENT, TAKE TYLENOL NEEDED FOR ACHES AND PAIN, CONTINUE HOME MEDICATIONS. Patient Language: Palestinian Follow-up/Referrals: Chava Corley, STEFANI [Physician, Dentistry/Oral Surgery]
--- OUTSIDE RECORDS SUMMARY | 2025-02-01 20:47 | XMS_ITS | Clinical Summary ---
Author Organization [facility] Address [address] [place] [address] Care Team Providers Care Boat Hoist Operator Helper Name Role Phone Sailaja Corley NP Primary Care Provider [phone] Allergies Active Allergy Reactions Criticality Noted Date Comments Hydrocodone-Acetaminophen Swelling 01/29/2011 Medications ondansetron (ZOFRAN-ODT) 4 MG disintegrating tablet Take 1 tablet (4 mg total) by mouth every 6 (six) hours as needed for Nausea. 10 tablet 2 Active Active Problems Problem Noted Date Diagnosed Date Memory changes 07/18/2020 Overview (07/18/2020): Started approx 6-7 months ago. Thought it [...] but states that all tests were WNL. Assessment & Plan (07/18/2020 1:47 PM CDT): MRI of brain to rule out pituitary or other brain tumor. If negative- will send to neurology. Please send copies of labs to office for review. Healthcare maintenance 07/18/2020 Overview (07/18/2020): Pap- 7 years ago, WNL Labs- 1 mo ago- patient to bring copies to office. Post menopausal since age 27 Assessment & Plan (07/18/2020 1:48 PM CDT): Due for PAP. Schedule annual well woman exam Family History Medical History Relation Comments No Known Problems Brother No Known Problems Father No Known Problems Mother No Known Problems Sister Relation Status Comments Brother Alive Father Alive Mother Alive Sister Alive Social History Tobacco Use Types Packs/Day Years Used Date Smoking Tobacco: Never Smokeless Tobacco: Never Tobacco Cessation:Counseling Given: Not Answered Alcohol Use Standard Drinks/Week Comments Not Currently 0 (1 standard drink = 0.6 oz pur e alcohol) PHQ-2 Answer Date Recorded PHQ-2 Score - If the patient scores above 3, please move on to questions 3-9 0 11/15/2020 Comments No Sex and Gender Information Value Date Recorded Sex Assigned at Not on file Legal Sex Female 8:55 PM CDT Gender Identity Not on file Sexual Orientation Not on file Last Filed Vital Signs Vital Sign Reading Time Taken Comments Blood Pressure 112/71 03/31/2022 4:30 PM JEWELRY MANAGER Pulse 85 03/31/2022 3:17 PM JEWELRY MANAGER Temperature 35.9 C (96.7 F) 03/31/2022 3:17 PM JEWELRY MANAGER Respiratory Rate 20 03/31/2022 3:17 PM JEWELRY MANAGER Oxygen Saturation 100% 03/31/2022 4:30 PM JEWELRY MANAGER Inhaled Oxygen Concentration - - Weight 63.5 kg (140 lb) 03/31/2022 3:17 PM JEWELRY MANAGER Height 177.8 cm (5' 10) 03/31/2022 3:17 PM JEWELRY MANAGER Body Mass Index 20.09 03/31/2022 3:17 PM JEWELRY MANAGER Plan of Treatment Health Maintenance Due Date Last Done Comments Cervical Cancer Screening Pa p Smear (Age 30 to 64) Every 3 Years 1985 Annual Physical 1988 Hepatitis C 09/04/2003 DTaP, Tdap and Td Vaccines ( 1 - Tdap) 2004 Hepatitis B Vaccines (1 of 3 - 19+ 3-dose series) 2004 HPV Vaccines (1 - 3-dose SCD M series) 2012 Cervical Cancer Screening Pa p with HPV Testing (Age 30 to 64) Every 5 Years 09/04/2015 Cervical Cancer Screening with HPV 09/04/2015 COVID-19 Vaccine (2024-2 6 season) 2024 Influenza Adult (#1) 2024 Hepatitis A Vaccines Aged Out No long er eligible based on patient's age to complete this topic Meningococcal B Vaccine Aged Out No l onger eligible based on patient's age to complete this topic Meningococcal Vaccine Aged Out No alexandra pamela eligible based on patient's age to complete this topic Pneumococcal Vaccine: Pediat rics (0 to 5 Years) and At-Risk Patients (6 to 49 Years) Aged Out No longer eligible b ased on patient's age to complete this topic RSV Immunizations Under 20 Months Aged Out No longer eligible based on patient's age to complete this topic Insurance Care Teams Boat Hoist Operator Helper Relationship Specialty Start Date End Date Sailaja Corley NP [address] [place] [id number] PCP - General NURSE PRACTITIONER 01/31/22
--- OUTSIDE RECORDS SUMMARY | 2025-02-01 20:47 | XMS_ITS | Clinical Summary ---
Author Organization [facility] Address [address] [place] [address] Care Team Providers Care Branch Operation Evaluation Manager Name Role Phone Unavailable Primary Care Provider Unavailabl e Source Comments [facility],non-owned Affiliates and Associated Physician Practices is amultiple site organization consisting of ambulatory clinics and hospital sitesin [place], [place], [place] and [place]. This disclosure is being madepursuant to the Care Everywhere program and may not contain all information available regarding this patient. Last updated 17.[facility] Social History Tobacco Use Types Packs/Day Years Used Date Smoking Tobacco: Never Assessed Comments Unknown Sex and Gender Information Value Date Recorded Sex Assigned at Not on file Legal Sex Female 1:21 PM INSECT CONTROL INSPECTOR Gender Identity Not on file Sexual Orientation [...]
--- OUTSIDE RECORDS SUMMARY | 2025-02-01 20:47 | XMS_ITS | Clinical Summary ---
Author Organization [facility] al Address [address] [place] [address] Care Team Providers Care Teradata Developer Name Role Phone Sailaja Corley NP Primary Care Provider [phone] Allergies Active Allergy Reactions Criticality Noted Date [...] on file Legal Sex Female 11:28 AM VALVE LAPPER Gender Identity Not on file Sexual Orientation Not on file Last Filed Vital Signs Vital Sign Reading Time Taken Comments Blood Pressure 90/58 04/28/2023 10:52 AM VALVE LAPPER Pulse 80 04/28/2023 10:52 AM VALVE LAPPER Temperature 36.6 C (97.8 F) 04/28/2023 10:52 AM VALVE LAPPER Respiratory Rate 18 04/28/2023 10:52 AM VALVE LAPPER Oxygen Saturation 97% 04/28/2023 10:52 AM VALVE LAPPER Inhaled Oxygen Concentration - - Weight 61.7 kg (136 lb) 04/28/2023 10:52 AM VALVE LAPPER Height 177.8 cm (5' 10) 04/28/2023 10:52 AM VALVE LAPPER Body Mass Index 19.51 04/28/2023 10:52 AM VALVE LAPPER Plan of Treatment Health Maintenance Due Date [...] patient's age to complete this topic Insurance [facility] CHOICE PLUS [facility] HMO/PPO Address: [place] [address] Care Teams Teradata Developer Relationship Specialty Start Date End Date Sailaja Corley NP PCP - General 04/28/23
--- OUTSIDE RECORDS SUMMARY | 2025-02-01 20:48 | XMS_ITS | Data Portability ---
Author Organization HELDER - [facility], PIsabella, [facility] Address [address] [place] [address] Assessment Encounter Date Assessment Date Assessment LastModified by Organization Details LastModified Time 06/08/2014 06/08/2014 Sonia IgG and IgE with vegetables and celiac panel [email or web address] Not available 06/08/2014 15:39:09 10/28/2017 10/28/2017 Concerned [...] 018 smis [facility], [address], [place], [address], 8 16:48:55 Medication Orders Nora 2014 015 [email or web address] [facility], [address] [facility], [place], [address], 8 16:11:52 Patient TargetsNo targets recorded. Patient Instructions Encounter Date Encounter Id Patient Instructions Last Modified By Organization Details Last Modified Time 06/08/2014 [id number] Magnesium citrat e 300-400 mg nightly x 2 weeks, then may increase to 300-400 mg twice daily if needed; at onset of migraine, take approx 1000 mg x 1. Follow up with chiropractor Dr. Darío Last Or Dr. Herman Ballesteros at [facility] nasal spray 2 sprays/nostril twice daily ([address]). Stop if become . Medications reviewed, side effects discussed. Call or return to clinic if questions or concerns. Return to clinic if symptoms worsen or persist. Not available 06/08/2014 15:44:45 04/25/2017 [id number] See hand surgeon Mauricio [email or web address] Not available 04/25/2017 14:18:14 Reason for Referral None Reported. Results Created Date Observation Date Name Description Value Unit Range Abnormal Flag Note LastModifiedBy Organization Detail LastModifiedTime 06/09/19 15 06/09/2014 CBC WBC 5.6 x10e3 /uL 3.4-10 .8 Not Available [facility] ([facility]) [address], [place], [address], 06/13/2014 20:36:41 06/09/19 15 06/09/2014 CBC RBC 4.81 x10e6 /uL 3.77-5 .28 Not Available [facility] ([facility]) [address] [facility] [place], [address], 06/13/2014 20:36:41 06/09/19 15 06/09/2014 CBC hemoglobin 13.3 g/dL 11.1-1 5.9 Not Available [facility] ([facility]) [address] [facility] [place], [address], 06/13/2014 20:36:41 06/09/19 15 06/09/2014 CBC hematocrit 41.1 % 34.0-4 6.6 Not Available [facility] ([facility]) [address] [facility] [place], [address], 06/13/2014 20:36:41 06/09/19 15 06/09/2014 CBC MCV 85 fL 79-97 Not Available [facility] ([facility]) [address] [facility] [place], [address], 06/13/2014 20:36:41 06/09/19 15 06/09/2014 CBC MCH 27.7 pg 26.6-3 3.0 Not Available [facility] ([facility]) [address] [facility] [place], [address], 06/13/2014 20:36:41 06/09/19 15 06/09/2014 CBC MCHC 32.4 g/dL 31.5-3 5.7 Not Available [facility] ([facility]) [address] [facility] [place], [address], 06/13/2014 20:36:41 06/09/19 15 06/09/2014 CBC RDW 12.9 % 12.3-1 5.4 Not Available [facility] ([facility]) [address] [facility] [place], [address], 06/13/2014 20:36:41 06/09/19 15 06/09/2014 CBC platelets 170 x10e3 /uL 150-37 9 Not Available [facility] ([facility]) [address] [place], [address], 06/13/2014 20:36:41 06/09/19 15 06/09/2014 CBC neutrophils 47 % Not Avai lable [facility] ([facility]) [address] [place], [address], 06/13/2014 20:36:41 06/09/19 15 06/09/2014 CBC lymphs 39 % Not Available [facility] ([facility]) [address] [place], [address], 06/13/2014 20:36:41 06/09/19 15 06/09/2014 CBC monocytes 9 % Not Availa ble [facility] ([facility]) [address] [place], [address], 06/13/2014 20:36:41 06/09/19 15 06/09/2014 CBC eos 4 % Not Available [facility] ([facility]) [address] [place], [address], 06/13/2014 20:36:41 06/09/19 15 06/09/2014 CBC basos 1 % Not Available [facility] ([facility]) [address] [place], [address], 06/13/2014 20:36:41 06/09/19 15 06/09/2014 CBC neutrophils (absolute) 2.6 x10e3 /uL 1.4-7. 0 Not Available [facility] ([facility]) [address] [place], [address], 06/13/2014 20:36:41 06/09/19 15 06/09/2014 CBC lymphs (absolute) 2.2 x10e3 /uL 0.7-3. 1 Not Available [facility] ([facility]) [address] [place], [address], 06/13/2014 20:36:41 06/09/19 15 06/09/2014 CBC monocytes(ab solute) 0.5 x10e3 /uL 0.1-0. 9 Not Available [facility] ([facility]) [address] [place], [address], 06/13/2014 20:36:41 06/09/19 15 06/09/2014 CBC eos (absolute) 0.2 x10e3 /uL 0.0-0. 4 Not Available [facility] ([facility]) [address] [place], [address], 06/13/2014 20:36:41 06/09/19 15 06/09/2014 CBC baso (absolute) 0.0 x10e3 /uL 0.0-0. 2 Not Available [facility] ([facility]) [address] [place], [address], 06/13/2014 20:36:41 06/09/19 15 06/09/2014 CBC immature granulocytes 0 % Not Available [facility] ([facility]) [address] [place], [address], 06/13/2014 20:36:41 06/09/19 15 06/09/2014 CBC immature grans (abs) 0.0 x10e3 /uL 0.0-0. 1 Not Available [facility] ([facility]) [address] [place], [address], 06/13/2014 20:36:41 06/09/19 15 06/09/2014 CMP, serum or plasm a glucose, serum 83 mg/dL 65-99 Not Available [facility] ([facility]) [address] [place], [address], 06/13/2014 20:36:41 06/09/19 15 06/09/2014 CMP, serum or plasm a BUN 15 mg/dL 6-20 Not Available [facility] ([facility]) [address] [place], [address], 06/13/2014 20:36:41 06/09/19 15 06/09/2014 CMP, serum or plasm a creatinine, serum 0.68 mg/dL 0.57-1 .00 Not Available [facility] ([facility]) [address] [place], [address], 06/13/2014 20:36:41 06/09/19 15 06/09/2014 CMP, serum or plasm a eGFR if nonafricn AM 119 mL/mi n/1.7 3 >59 Not Available [facility] ([facility]) [address] [place], [address], 06/13/2014 20:36:41 06/09/19 15 06/09/2014 CMP, serum or plasm a eGFR if africn AM 138 mL/mi n/1.7 3 >59 Not Available [facility] ([facility]) [address] [place], [address], 06/13/2014 20:36:41 06/09/19 15 06/09/2014 CMP, serum or plasm a BUN/creatini ne ratio 22 8-20 high Not Available [facility] ([facility]) [address] [place], [address], 06/13/2014 20:36:41 06/09/19 15 06/09/2014 CMP, serum or plasm a sodium, serum 143 mmol/ L 134-14 4 Not Available [facility] ([facility]) [address] [place], [address], 06/13/2014 20:36:41 06/09/19 15 06/09/2014 CMP, serum or plasm a potassium, serum 3.9 mmol/ L 3.5-5. 2 Not Available [facility] ([facility]) [address] [place], [address], 06/13/2014 20:36:41 06/09/19 15 06/09/2014 CMP, serum or plasm a chloride, serum 106 mmol/ L 97-108 Not Available [facility] ([facility]) [address] [facility], [place], [address], 06/13/2014 20:36:41 06/09/19 15 06/09/2014 CMP, serum or plasm a carbon dioxide, total 23 mmol/ L 18-29 Not Available [facility] ([facility]) [address] [facility] [place], [address], 06/13/2014 20:36:41 06/09/19 15 06/09/2014 CMP, serum or plasm a calcium, serum 9.0 mg/dL 8.7-10 .2 Not Available [facility] ([facility]) [address] [facility] [place], [address], 06/13/2014 20:36:41 06/09/19 15 06/09/2014 CMP, serum or plasm a protein, total, serum 6.4 g/dL 6.0-8. 5 Not Available [facility] ([facility]) [address] [facility], [place], [address], 06/13/2014 20:36:41 06/09/19 15 06/09/2014 CMP, serum or plasm a albumin, serum 4.4 g/dL 3.5-5. 5 Not Available [facility] ([facility]) [address] [facility], [place], [address], 06/13/2014 20:36:41 06/09/19 15 06/09/2014 CMP, serum or plasm a globulin, total 2.0 g/dL 1.5-4. 5 Not Available [facility] ([facility]) [address] [place], [address], 06/13/2014 20:36:41 06/09/19 15 06/09/2014 CMP, serum or plasm a A/G ratio 2.2 1.1-2. 5 Not Available [facility] ([facility]) [address] [facility] [place], [address], 06/13/2014 20:36:41 06/09/19 15 06/09/2014 CMP, serum or plasm a bilirubin, total 0.3 mg/dL 0.0-1. 2 Not Available [facility] ([facility]) [address] [place] [address], [address], 06/13/2014 20:36:41 06/09/19 15 06/09/2014 CMP, serum or plasm a alkaline phosphatase, S 93 IU/L 39-117 Not Available [facility] ([facility]) [address] [place] [address], [address], 06/13/2014 20:36:41 06/09/19 15 06/09/2014 CMP, serum or plasm a AST (SGOT) 14 IU/L 0-40 Not Available [facility] ([facility]) [address] [place] [address], [address], 06/13/2014 20:36:41 06/09/19 15 06/09/2014 CMP, serum or plasm a ALT (SGPT) 14 IU/L 0-32 Not Available [facility] ([facility]) [address] [place] [address], [address], 06/13/2014 20:36:41 06/09/19 15 06/09/2014 TIBC (tota l iron- camille ng capac ity), serum iron bind.cap.(TI BC) 310 ug/dL 250-45 0 Not Available [facility] ([facility]) [address] [place] [address], [address], 06/13/2014 20:36:42 06/09/19 15 06/09/2014 TIBC (tota l iron- camille ng capac ity), serum UIBC 235 ug/dL 150-37 5 Not Available [facility] ([facility]) [address] [place] [address], [address], 06/13/2014 20:36:42 06/09/19 15 06/09/2014 TIBC (tota l iron- camille ng capac ity), serum iron, serum 75 ug/dL 35-155 Not Available [facility] ([facility]) [address] [place], [address], 06/13/2014 20:36:42 06/09/19 15 06/09/2014 TIBC (tota l iron- camille ng capac ity), serum iron saturation 24 % 15-55 Not Available [facility] ([facility]) [address] [place], [address], 06/13/2014 20:36:42 06/09/19 15 06/09/2014 vitam in B12 + folat e, serum or blood vitamin B12 964 pg/mL 211-94 6 high Not Available [facility] ([facility]) [address] [place], [address], 06/13/2014 20:36:42 06/09/19 15 06/09/2014 vitam in B12 + folat e, serum or blood folate (folic acid), serum >19.9 NG/mL >3.0 A SERUM FOLAT E MADI NTRAT ION OF LESS THAN 3.1 NG/ML IS CONSI DERED TO REPRE SENT CLINI JCARLOS DEFIC IENCY . Not Available [facility] ([facility]) [address] [facility], [place], [address], 06/13/2014 20:36:42 06/09/19 15 06/13/2014 T3, rever se, serum reverse T3, serum 11.1 NG/dL 9.2-24 .1 Not Available [facility] ([facility]) [address] [place], [address], 06/13/2014 20:36:43 06/09/19 15 06/09/2014 vitam in [...] [facility] [place]: [facility] PRESS . 2. EUGENIA Boone MF, HELEN DÍAZ NC, ARTHUR OFF-F ERRAR I THRASHER, ET AL. EVALU ATION , TREAT MENT, AND PREVE NTION OF VITAM IN D DEFIC IENCY : AN ENDOC RINE SOCIE TY CLINI JCARLOS PRACT ICE GUIDE LINE. JCEM. 2010; 96(7) :1911 -30. Not Available [facility] ([facility]) [address] [place], [address], 06/13/2014 20:36:43 06/09/19 15 06/09/2014 TSH, serum or plasm a TSH 1.080 uIU/m L 0.450- 4.500 Not Available [facility] ([facility]) [address] [place], [address], 06/13/2014 20:36:44 06/09/19 15 06/09/2014 T4, free, serum T4,free(dire ct) 1.20 NG/dL 0.82-1 .77 Not Available [facility] ([facility]) [address] [place], [address], 06/13/2014 20:36:44 06/09/19 15 06/09/2014 T3, free, serum or plasm a triiodothyro nine,free,se rum 2.8 pg/mL 2.0-4. 4 Not Available [facility] ([facility]) [address] [place], [address], 06/13/2014 20:36:45 06/09/19 15 06/09/2014 gia tin, serum or plasm a ferritin, serum 65 NG/mL 15-150 Not Available [facility] ([facility]) [address] [facility], [place], [address], 06/13/2014 20:36:45 06/09/19 15 06/08/2014 one speci [...] OF COLLE CTION . Not Available [facility] ([facility]) [address] [facility], [place], [address], 06/13/2014 20:36:45 04/25/19 18 04/25/2017 X wrist , lt, min 3V* No observ ation record ed. TRANG [facility] [id number] [facility] [place], [address], 05/08/2017 16:11:12 11/19/19 19 11/18/2018 CT, abdom en + pelvi s, w/o contr ast No observ ation record ed. [email or web address] Not Available 11/24 00:03:44 Result Notes None recorded. Problems Name Problem SNOMED Code Status Onset Date Resolution Date Notes Provider Name and Address Organization Details Recorded Time Migraine 50884660 Active Leesa carter [place] [facility] 5 15:44:45 Spasm 18270318 Active [facility] 5 15:44:45 Urticaria 051367884 Active Oil Mandujano MD [address] [place], [address] , HELDER Schmitt [facility] 5 19:52:22 Problem Notes None [...] Not available Not available Not available 06/08/2014 34553 2 RxNorm Anny carter [facility] 5 15:09:37 Medications Name Sig Start Date Stop Date Status Note LastModified by Organization Details LastModified Time Nora 200 2d; 12x 3 bid 10/28 completed [...] Updated DateTime 04/25/2017 177.8 cm 20.5 kg/m2 50893.71 g 71 /min 111/75 mm[Hg] Rosaline Dennison [facility] 04/25/2017 13:39:58 Date Recorded Body weight Heart rate Body mass index (BMI) Body height Systolic And Diastolic Provider Name and Address Organization Details Last Updated DateTime 06/08/2014 50811.95 8296 g 78 /min 17.3 kg/m2 177.8 cm 95/58 mm[Hg] Anny Jonas [facility] 06/08/2014 15:09:37 Date Recorded Body weight Heart rate Body mass index (BMI) Body height Systolic And Diastolic Provider Name and Address Organization Details Last Updated DateTime 09/09/2014 39973.35 7094 g 85 /min 18.1 kg/m2 177.8 cm 96/60 mm[Hg] Elizabeth Rodriguez [place] Rico [facility] 09/09/2014 19:13:44 Date Recorded Body height Body mass index (BMI) Body weight Provider Name and Address Organization Details Last Updated DateTime 10/28/2017 177.8 cm 21.1 kg/m2 13901.08 g Anny Schmitt [facility] 10/28/2017 16:11:37 Social History Question Answer Notes LastModified by Organizat ion Details LastModified Time Tobacco Smoking Status Never Smoker HELDER Duff [facility] 06/08/2014 15:09:38 What Was The [...] N High Cholesterol N Liver Disease N Headaches N Fibromyalgia N Kidney Disease N Ear or Hearing Problems N Thyroid Problems N Skin Problems N Anemia N Constipation N Mental Illness N Diabetes N Bedwetting N Seizures/Epilepsy N Heart Problems/Murmur N Tuberculosis N Diverticulitis N Asthma N Allergies N Reflux/GERD N Heart Disease N Pulmonary Embolism N Hypertension N Chicken Pox Y Autism Spectrum Disorder (ASD) N Osteoporosis N Gynecological HistoryNo gynecological history recorded. Obstetrics History GPAL:G 0 P 0 0 0 0 Past Encounters Encounter ID Performer Location Encounter Start Date Encounter Closed Date Diagnosis/Indication Diagnosis SNOMED-CT Code Diagnosis ICD10 Code Diagnosis IMO Codes Diagnosis Note [id number] Leesa Chandler Main Office [address] [place] [address] 06/08/2014 14:29:44 06/08/2014 18:28:13 Migraine 26728326 History of anemia 528121722 Spasm [id number] Oli Mandujano MD Main Office [address] [place] [address] 09/09/2014 19:11:10 09/09/2014 20:00:37 Urticaria [id number] Oli Mandujano MD Main Office [address] [place] [address] 04/25/2017 13:23:45 04/25/2017 14:25:39 Injury of wrist 540421597 S69.92XA [id number] Oli Mandujano MD Main Office [address] [place] [address] 10/28/2017 16:07:45 10/28/2017 16:35:15 Cellulitis 973037023 L03.90 Health Concerns Section Related Observation LastModified by Organization Detai ls LastModified Time None Recorded Concern Status LastModified by Organization Details LastModified Time None Recorded Advance Directives Directive None Recorded Payers Insurance Date Sequence Insurance Name Policy Number Policy Quinn Covered Member ID Quinn Member ID Guarantor Name 10/28/2017 1 [facility] [id number] Sushil Downs [id number] Radha Himanshu Notes Date Note Type Note [...] the past with low iron [facility] 06/08/2014 15:46:25 09/09/2014 text/html 3 days of waking with swollen painful very itchy nodules on backs of hands and less so on great toes - >> later in day. A bit worse each day. itching Oli Mandujano MD [address] [facility], [place], [address], [facility] 09/09/2014 19:52:35 04/25/2017 text/html [id number] on ice struck L wrist on impact. Was seen and X rayed at ER in [facility] - was told it was just sprained. has worn sling but still very painful and cannot use. Oli Mandujano MD [address] [place], [address], [facility] 04/25/2017 14:21:51 10/28/2017 text/html SaturdayWas petting goats and was working in the garden.Usually easy to get poison sanam. Was taking probiotics.Worked a lot on Saturday. Then Saturday couldn't even open eyes. karen Mandujano MD [address], [place], [address], [facility] 10/30/2017 20:38:38 OBGyn Episode No OBEpisode recorded.
[2025-02-01] MEDS: SODIUM CHLORIDE 0.9% IV 1,000 ML 999 ML IV CONT (21:17)
--- NOTE | 2025-02-01 21:30 | PC.NURSE ---
Pt resting w/ spouse at bedside, she was offered further lab work and testing but refused stating she had it done a few days ago when she was here and is dehydrated from the diarrhea. She wants only IVF for her sxs and has plans and appnt to f/u w/ her Dr in morning.
[2025-02-01 22:47] VITALS: BP 118/71; PULSE 62; RESP 18; TEMP 36.5; O2SAT 99
== END 2025-02-01 22:47 | disposition home or self-care (01) ==
PROVIDERS: Emergency Provider Emergency Medicine; PCP Nurse Practitioner
DX: R11.0 Nausea (principal)
CPT/HCPCS: 96360; 99283; J7030